=== PATIENT | male | born 1960 | race Caucasian/White ===

== ENCOUNTER 2016-10-11 15:34 | Inpatient (IN) | payer MEDICAID ==
[~2016-10-11] VITALS: Ht 172.7 cm; Wt 72.7 kg
[2016-10-11] MEDS ORDERED: CEFEPIME 2GM/50 ML (PMX) 50 ML IVPB STA (15:39)
[2016-10-11] MEDS ORDERED: SODIUM CHLORIDE 0.9% 1L BAG IV* STA (15:39)
[2016-10-11 15:41] VITALS: Ht 172.7 cm; Wt 72.7 kg
[2016-10-11] MEDS ORDERED: VANCOMYCIN 1 GM (PMX) 250 ML IVPB ONE (16:00)
[2016-10-11 16:07] LABS: ADD SCAN DIFF NO
[2016-10-11 16:09] LABS: ABNORMAL IP MESSAGE 1; BASOPHILS % 0.1 % (0.0-2.0); EOSINOPHILS % 0.1 % (0.0-7.0); HEMOGLOBIN 10.1 g/dl (14.0-18.0); LYMPHOCYTES # 0.6 10^3/ul (0.8-2.9); LYMPHOCYTES % 7.3 % (15.0-51.0); MEAN CORPUSCULAR HEMOGLOBIN 24.1 pg (29.0-33.0); MEAN CORPUSCULAR HGB CONC 30.6 g/dl (32.0-37.0); MEAN CORPUSCULAR VOLUME 78.8 fl (82.0-101.0); MEAN PLATELET VOLUME 9.6 fl (7.4-10.4); MONOCYTE # 0.6 10^3/ul (0.3-0.9); MONOCYTES % 7.8 % (0.0-11.0); NEUTROPHIL # 6.8 10^3/ul (1.6-7.5); NEUTROPHILS % 84.1 % (39.0-77.0); PLATELET COUNT 156 10^3/UL (140-415); RED BLOOD COUNT 4.19 10^6/ul (4.70-6.10); RED CELL DISTRIBUTION WIDTH 19.1 % (11.5-14.5); WHITE BLOOD COUNT 8.1 10^3/ul (4.8-10.8)
[2016-10-11 16:23] LABS: ADD UMIC YES; UR ASCORBIC ACID NEGATIVE (NEGATIVE); UR BILIRUBIN (Dip) NEGATIVE (NEGATIVE); UR BLOOD (Dip) NEGATIVE (NEGATIVE); UR CLARITY SLIGHTLY CLOUDY (CLEAR); UR COLOR AMBER (YELLOW); UR GLUCOSE (Dip) NEGATIVE (NEGATIVE); UR KETONES (Dip) TRACE mg/dL (NEGATIVE); UR LEUKOCYTE ESTERASE (Dip) NEGATIVE Leu/ul (NEGATIVE); UR MUCUS MANY /HPF (NONE SEEN); UR NITRITE (Dip) NEGATIVE (NEGATIVE); UR RBC 1 /HPF (0-5); UR SPECIFIC GRAVITY (Dip) 1.028 (1.003-1.030); UR TOTAL PROTEIN (Dip) 1+ mg/dl (NEGATIVE); UR UROBILINOGEN (Dip) NEGATIVE (NEGATIVE)
[2016-10-11 16:24] LABS: INR 1.84; PROTIME 21.4 Sec (12.2-14.2); PT RATIO 1.7
[2016-10-11 16:25] LABS: PARTIAL THROMBOPLASTIN TIME 38.3 Sec (25.0-35.0)
--- NOTE | 2016-10-11 16:25 | ERA ---
ER Documentation Chief Complaint Date/Time DATE: 10/11/16 TIME: 16:08 Chief Complaint DRUG USE, HX OF HEROIN USE HPI This is a 56-year-old male that was brought into the emergency department by EMS with changes in his mental status. According to EMS they got a call from the patient's mother and she found him lying on the bathroom floor. The patient 's last known normal time was roughly 24 hours ago when the mother indicated she had seen the patient going to the bathroom and appeared to be at his baseline mental status. The mother did indicate to EMS that the patient has a history of heroin use and she was concerned that he could have overdosed. The patient was to altered to provide any further history. His mother indicates he had a liver procedure 1 month ago but was unable to elaborate any further on the name of the procedure or where it occurred. EMS indicated there is no signs of trauma or drug paraphernalia that they were able to see. The patient was lying on a tiled surface. The patient had not experienced any emesis. No medication was given in route ROS All systems reviewed and are negative except as per history of present illness. Allergies Allergies: Coded Allergies: No Known Allergy (Unverified , 10/11/16) Physical Exam Vitals Vital Signs Date Time Temp Pulse Resp B/P Pulse Ox O2 Delivery O2 Flow Rate FiO2 10/11/16 15:41 99.2 124 33 144/65 100 Physical Exam Constitutional:Well-developed. Disheveled. HEENT:Normocephalic. Atraumatic.Pupils were equal round reactive to light. Very dry mucous membranes.No tonsillar exudates. No nasoseptal hematoma. No hemotympanum. Neck: No nuchal rigidity. No lymphadenopathy. No posterior cervical spine tenderness or step-offs. Respiratory: Tachypneic not using accessory muscles of respiration.Lungs were clear to auscultation bilaterally. No rhonchi. No rales. No wheezing. Cardiovascular: Tachycardic with regular rhythm.No murmurs. No rubs were appreciated.S1, S2 normal. Distal pulses are palpable 2+ bilaterally. GI: Abdomen was soft. Nontender. Hepatomegaly Non Distended. No pulsatile abdominal masses or bruits. No rebound. No guarding. Bowel sounds were present and normal. Muscle skeletal: Full range of motion of both the upper and lower extremities bilaterally.Normal muscle tone.No assymetrical calf tenderness or swelling. Skin: No petechia, no purpura. No lesions on the palms or the soles of the feet. No maculopapular rash. NEURO: Patient is a phasic. He opens his eyes in response to pain. He withdraws to pain. Gait was not observed as patient is too altered. Result Diagram: 10/11/16 1550 10/11/16 1550 Results 24 hrs Laboratory Tests Test 10/11/16 15:50 10/11/16 16:03 10/11/16 16:13 White Blood Count 8.110^3/ul Red Blood Count 4.1910^6/ul Hemoglobin 10.1g/dl Hematocrit 33.0% Mean Corpuscular Volume 78.8fl Mean Corpuscular Hemoglobin 24.1pg Mean Corpuscular Hemoglobin Concent 30.6g/dl Red Cell Distribution Width 19.1% Platelet Count 29609^3/UL Mean Platelet Volume 9.6fl Neutrophils % 84.1% Lymphocytes % 7.3% Monocytes % 7.8% Eosinophils % 0.1% Basophils % 0.1% Nucleated Red Blood Cells % 0.0/100WBC Neutrophils # 6.810^3/ul Lymphocytes # 0.610^3/ul Monocytes # 0.610^3/ul Eosinophils # 0.010^3/ul Basophils # 0.010^3/ul Nucleated Red Blood Cells # 0.010^3/ul Prothrombin Time 21.4Sec Prothrombin Time Ratio 1.7 INR International Normalized Ratio 1.84 Activated Partial Thromboplast Time 38.3Sec Sodium Level 148mmol/L Potassium Level 4.4mmol/L Chloride Level 109mmol/L Carbon Dioxide Level 9mmol/L Anion Gap 34 Blood Urea Nitrogen 21mg/dl Creatinine 1.47mg/dl Glucose Level 128mg/dl Lactic Acid Level 15.1mmol/L Calcium Level 9.9mg/dl Total Bilirubin 1.0mg/dl Direct Bilirubin 0.00mg/dl Indirect Bilirubin 1.0mg/dl Aspartate Amino Transf (AST/SGOT) 85IU/L Alanine Aminotransferase (ALT/SGPT) 39IU/L Alkaline Phosphatase 160IU/L Troponin I 0.042ng/ml Total Protein 9.7g/dl Albumin 4.2g/dl Globulin 5.50g/dl Albumin/Globulin Ratio 0.76 Amylase Level 103U/L Lipase 100U/L Urine Color ROBIN Urine Clarity SLIGHTLY CLOUDY Urine pH 5.0 Urine Specific [place] 1.028 Urine Ketones TRACEmg/dL Urine Nitrite NEGATIVEmg/dL Urine Bilirubin NEGATIVEmg/dL Urine Urobilinogen NEGATIVEmg/dL Urine Leukocyte Esterase NEGATIVELeu/ul Urine Microscopic RBC 1/HPF Urine Microscopic WBC 2/HPF Urine Mucus MANY/HPF Urine Hemoglobin NEGATIVEmg/dL Urine Glucose NEGATIVEmg/dL Urine Total Protein 1+mg/dl Bedside Glucose 113mg/dL Current Medications Medications (Trade) Dose Ordered Sig/Wally Route PRN Reason Start Time Stop Time Status Last Admin Dose Admin Sodium Chloride 2480 ml 2,480 ml BOLUS OVER 2 HOURS STAT IV* 10/11/16 15:39 10/11/16 15:43 DC 10/11/16 16:16 Cefepime HCl 50 ml @ 100 mls/hr ONCE STAT IVPB 10/11/16 15:39 10/11/16 16:08 DC 10/11/16 16:16 Vancomycin HCl (Vancocin) 250 ml @ 125 mls/hr ONCE ONCE IVPB 10/11/16 16:00 10/11/16 17:59 10/11/16 16:17 Procedures/MDM The patient presented to the emergency department with an acute and persistent change in their mental status. The differential diagnosis is diverse however reversible causes such as hypoglycemia, opiate overdose, thiamine deficiency were immediately considered. The patient was placed on a press operator assistant, continuous pulse oximetry and IV access was established. The patients airway was secure however hypoxic events such as anemia, shock, or severe pulmonary disease were all considered as etiologies in this patients presentation. Circulation assessed with good cap refill and did not require fluids or pressure support. Finger stick for rapid glucose determined to be normal. As stated above the patient's airway was intact as he was satting 100% on room air. The patient had blood cultures and urine cultures obtained. The patient immediately was started on a 30 cc/kg bolus of normal saline. The patient was started on antibiotics for suspected sepsis thought to be secondary to urinary tract infections the patient had pyuria and cloudy urine once the Bernstein catheter was placed for urinary output measurement. The patient was started on ceftriaxone and vancomycin. The patient's bicarb was low at 9. I ordered an arterial blood gas. The patient was given an amp of bicarb. Again the patient's airway was intact and at this moment in time did not require intubation 12 Lead EKG tracing ordered and reviewed by myself showed: Tachycardic 123 bpm and no arrhythmia. [place] interval normal. QRS duration normal. No ST segment elevation No ST segment depression. No changes consistent with acute ischemia. The patient's lactic acid was elevated at 15.1. Therefore at this time he was becoming hypotensive with a blood pressure of 86/33 felt the patient required a central line. The patient was critically ill and required central venous access. The patient was unable to consent due to his altered mental status and after was prepped and draped in a sterile fashion. Time out performed and the right femoral vein was cannulated using the Seldinger technique after anesthesia administered with 1% lidocaine locally. A triple lumen catheter used. The guidewire was easily thread into the vessel. The guidewire was retrieved, removed and disposed of. All three ports aneudy back venous blood and flushed easily. The line was secured in place with 2 simple interrupted sutures and a biostat was applied over the area in inoculation. The patient tolerated the procedure well with no complications. ED Ultrasound: Central line placed by me using concurrent ultrasound guidance. Real time image archived in the medical record confirms vascular anatomy. Patient's infectious symptoms have not stabilized and the patient is at risk of rapid decompensation. The patient will be admitted for careful hydration, antibiotic therapy, and infectious source control. Severe Sepsis Assessment: Infectious Source: Pyelonephritis End organ damage indicated by: Lactate > 2.0 mmol/L Hypotension( SBP < 90 or >40 mmHG drop or MAP < 65) Acute Resp Failure (sat < 92% w/o oxygen) Severe Sepsis Managment: Blood Cultures X 2 before broad spectrum antibiotics initiated within 3 hours of recognition. 30 ml/kg NS bolus Completed Initial Lactate: 15.1 Repeat Lactate pending Septic Shock Assessment (1 hour post 30 ml/kg fluid bolus): Hypotension (SBP < 90 or 40 mmHg drop, MAP < 65): YES Lactic acid > 4.0 YES Perfusion Reassessment for Septic Shock: Temp [XOXOXO], Pulse [XOXOXO], RR [XOXOXO], BP [XOXOXO] / [XOXOXO] Heart Exam: [Tachycardic] Lung Exam: [No Crackles] Capillary Refill: [Delayed] Peripheral Pulses: [Radially present] Skin: [Mottled, pale] Hypotensive Treatment (not required for isolated lactic acid elevation): Comfort Care: No Central LIne: Right femoral Vasopressor started: norepinephrine I considered further perfusion assessment with CVP measurement, SCVO2, bedside ultrasound volume assessment, passive leg raise, trial of further fluid bolus. And preceded with vasopressors Departure Diagnosis: Primary Impression: Drug overdose Qualified Code: T50.904A - Drug overdose, undetermined intent, initial encounter Additional Impressions: Toxic encephalopathy Severe sepsis Pyelonephritis Condition: Serious DOMINIC GARZA Oct 11, 2016 16:25
[2016-10-11 16:29] LABS: ALBUMIN 4.2 g/dl (3.3-4.9); ALBUMIN/GLOBULIN RATIO 0.76; CALCIUM 9.9 mg/dl (8.4-10.2); CREATININE 1.47 mg/dl (0.61-1.24); POTASSIUM 4.4 mmol/L (3.5-5.1); TOTAL PROTEIN 9.7 g/dl (6.1-8.1)
[2016-10-11 16:40] LABS: TROPONIN-I 0.042 ng/ml (0.00-0.12)
[2016-10-11] MEDS ORDERED: NA BICARBONATE 8.4% 50 ML SYG IV STA (17:22)
[2016-10-11] MEDS ORDERED: NORepinephrine 8MG/250 ML (PMX 250 ML IV STA (18:35)
--- NOTE | 2016-10-11 18:36 | RADRPT ---
PROCEDURE: CT head CLINICAL INDICATION: Altered mental status TECHNIQUE: Contiguous 2.5 mm axial images were obtained from the vertex to the skull base. No int ravenous contrast was administered. The calculated dose length product (DLP) = 900.28 mGy-cm. The CTDlvol = 45.01 mGy. One or more of the following dose reduction techniques were used: Automated e xposure control, adjustment of the mA and or KV according to patient size, or use of iterative recon struction technique. COMPARISON: None FINDINGS: There is no evidence of acute intracranial hemorrhage or acute territorial infarct. No mass or mass effect is seen on this noncontrast study. The ventricles and cisterns are normal in size and confi guration. The gonzales-white matter differentiation is within normal limits. The visualized paranasal sinuses are normally aerated. The bony calvarium is unremarkable. 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
[2016-10-11 18:41] VITALS: TEMP 99.1
[2016-10-11] MEDS ORDERED: NORepinephrine 8MG/250 ML (PMX 250 ML IV SCH (19:00)
[2016-10-11 19:20] LABS: BARBITURATES Negative (NEGATIVE); BENZODIAZEPINES Negative (NEGATIVE); CANNABINOIDS Negative (NEGATIVE); COCAINE Negative (NEGATIVE); OPIATES Positive (NEGATIVE)
[2016-10-11 19:30] LABS: AADO2 Arterial 23.4 mmHg (7.0-24.0); Allen Test ACCEPTAB; Arterial Base Excess -6.6 mmol/L (-3.0-3); Arterial COHb 0.3 % (0.0-3.0); Arterial Fraction of Oxyhgb 96.4 % (93.0-99.0); Arterial HCO3 15.4 mmol/L (22.0-26.0); Arterial MetHb 0.5 % (0.0-1.5); Arterial Total Hemglobin 8.6 g/dl (12.0-18.0); MODE ROOM AIR
[2016-10-11] MEDS ORDERED: VANCOMYCIN IV PER PHARMACY XX SCH (19:30)
[2016-10-11] MEDS ORDERED: DOBUTamine/D5W 1 MG/ML DRIP 250 ML IV SCH (19:30)
[2016-10-11 19:35] LABS: CALCIUM 8.8 mg/dl (8.4-10.2); CREATININE 1.07 mg/dl (0.61-1.24); POTASSIUM 4.5 mmol/L (3.5-5.1)
[2016-10-11 19:50] LABS: CREATINE KINASE 739 IU/L (23-200); SALICYLATE < 1.0 mg/dl (5.0-30.0)
--- NOTE | 2016-10-11 19:53 | HP ---
Date/Time of Note Date/Time of Note DATE: 10/11/16 TIME: 19:33 Assessment/Plan VTE Prophylaxis VTE Prophylaxis Intervention: SCD's Assessment/Plan Assessment/Plan 56 yo M yo with Pmhx heroin abuse brought in after being found down at home for unclear amount of time. Labs notable for profound anion gap metabolic acidosis 2 /2 profound lactic acidosis of unclear etiology. No leukocytosis to suggest underlying infectious process however CXR still pending and aspiration cannot be ruled out. UA without infection stigmata (no WBCs/leuks). Of note, significant improvement in chemP after 1 amp of bicarb and aggressive fluids. PLAN cont empiric sepsis abx CXR pending aggressive volume resus CMP/lactic acid q 4 hours DVT prophx NPO pending improvement in mental status (suspect toxic metabolic encephalopathy ) HPI/ROS Admit Date/Time Admit Date/Time Hx of Present Illness CC: altered mental status HPI 56 yo M with pmhx heroin abuse brought in by ambulance after being found down at home by his mother. Unclear how long patient was down or the events that led up to this incident. Pt protecting airway but otherwise not following commands/ answering questions at time of my evaluation thus unable to obtain additional ROS, PMHx/PSHx/Meds/All/Fam Hx or Soc Hx from patient PMH/Family/Social Social History Smoking Status: Unknown if ever smoked Exam/Review of Systems Vital Signs Vitals Vital Signs Date Time Temp Pulse Resp B/P Pulse Ox O2 Delivery O2 Flow Rate FiO2 10/11/16 18:41 99.1 117 30 127/96 99 Room Air Exam Exam laying on side does not follow commands tongue appears dry tachy, no mrg lungs clear abd soft no rashes or track hayes no edema Labs Result Diagram: 10/11/16 1550 10/11/16 1550 Medications Medications Current Medications Lorazepam (Ativan) 1 mg Q2H PRN IV ANXIETY; Start 10/11/16 at 19:00 Docusate Sodium (Colace) 100 mg Q12H PRN PO CONSTIPATION; Start 10/11/16 at 19: 00 Enoxaparin Sodium 40 mg 40 mg DAILY SC ; Start 10/12/16 at 09:00 Cefepime HCl 50 ml @ 100 mls/hr Q8 IVPB ; Start 10/11/16 at 22:00 Norepinephrine/ Dextrose (Levophed/D5W) 500 ml @ 1.87 mls/hr TITRATE IV ; Start 10/11/16 at 19:30 TOMASA LEMOS MD Oct 11, 2016 19:50
[2016-10-11] MEDS: SOD CHLORIDE 0.9% 1,000 ML IV SCH ×2 (20:00→23:57)
[2016-10-11 20:25] LABS: HAAIG REFLEX REFLEX FILED
[2016-10-11 20:54] LABS: ALBUMIN 2.9 g/dl (3.3-4.9); BILIRUBIN,INDIRECT 0.7 mg/dl (0-1.1); BILIRUBIN,TOTAL 0.7 mg/dl (0.2-1.3); TOTAL PROTEIN 7.1 g/dl (6.1-8.1)
[2016-10-11 21:20] VITALS: PULSE 115
[2016-10-11 21:30] VITALS: BP 147/62; PULSE 111; RESP 36
[2016-10-11 21:38] LABS: HEPATITIS B CORE ANTIBODY REACTIVE (NEGATIVE)
[2016-10-11 22:00] VITALS: BP 150/61; PULSE 113; RESP 26
[2016-10-11] MEDS: CEFEPIME 2GM/50 ML (PMX) 50 ML IVPB SCH (22:00)
[2016-10-11 23:00] VITALS: BP 142/59; PULSE 120; RESP 25
[2016-10-11 23:30] VITALS: BP 126/78; PULSE 122; RESP 18
[2016-10-11 23:37] LABS: ALBUMIN 2.9 g/dl (3.3-4.9); ALBUMIN/GLOBULIN RATIO 0.69; BILIRUBIN,INDIRECT 0.8 mg/dl (0-1.1); BILIRUBIN,TOTAL 0.8 mg/dl (0.2-1.3); CALCIUM 8.7 mg/dl (8.4-10.2); CREATININE 0.93 mg/dl (0.61-1.24); POTASSIUM 4.1 mmol/L (3.5-5.1); TOTAL PROTEIN 7.1 g/dl (6.1-8.1)
[2016-10-11] MEDS: LORAZEPAM 2 MG INJ IV PRN (23:56)
[2016-10-12] VITALS (28 sets, daily range): BP systolic 126–167; BP diastolic 54–142; PULSE 79–127; RESP 18–38
[2016-10-12] MEDS ORDERED: VANCOMYCIN 1 GM in NS 250 ML IVPB SCH
[2016-10-12] MEDS: SOD CHLORIDE 0.9% 1,000 ML IV SCH ×2 (04:46→07:43)
[2016-10-12] MEDS: CEFEPIME 2GM/50 ML (PMX) 50 ML IVPB SCH (05:36)
[2016-10-12] MEDS: LORAZEPAM 2 MG INJ IV PRN (05:36)
--- NOTE | 2016-10-12 06:33 | RADRPT ---
PROCEDURE: Chest x-ray CLINICAL INDICATION: Shortness of breath TECHNIQUE: Chest single view COMPARISON: None FINDINGS: The heart is normal in size. The pulmonary vessels are normal in caliber. The lungs are clear. Th e costophrenic angles are sharp. The visualized bony thorax is unremarkable. IMPRESSION: No acute cardiopulmonary disease. RPTAT: HH .Jarrod Gonzalez MD, Date Time Electronically viewed and signed by .Jarrod Gonzalez MD, MD on 10/11/2016 16:31 .W/
[2016-10-12 06:43] LABS: ALBUMIN 2.4 g/dl (3.3-4.9); ALBUMIN/GLOBULIN RATIO 0.58; BILIRUBIN,INDIRECT 0.8 mg/dl (0-1.1); BILIRUBIN,TOTAL 0.8 mg/dl (0.2-1.3); CALCIUM 8.6 mg/dl (8.4-10.2); CREATININE 0.69 mg/dl (0.61-1.24); POTASSIUM 3.9 mmol/L (3.5-5.1); TOTAL PROTEIN 6.5 g/dl (6.1-8.1)
[2016-10-12] MEDS ORDERED: ENOXAPARIN 40 MG/0.4 ML SYG SC SCH (09:00)
--- NOTE | 2016-10-12 10:32 | PN ---
Date/Time of Note Date/Time of Note DATE: 10/12/16 TIME: 10:28 Assessment/Plan VTE Prophylaxis VTE Prophylaxis Intervention: SCD's Lines/Catheters IV Catheter Type (from Nrsg): Central Line Central line still needed: Yes Urinary Cath still in place: Yes Reason Cath still needed: urinary retention Assessment/Plan Chief Complaint/Hosp Course Assessment/Plan: 56 yo M yo with Pmhx heroin abuse brought in after being found down at home for unclear amount of time, with + anion gap metabolic acidosis 2/ 2 profound lactic acidosis of unclear etiology, and possible rhabdo. PLAN cont empiric sepsis abx, aggressive IVF hydration (monitor CK levels ), monitor withdrawal smpts, add anti-emetic as well. CMP/lactic acid q 4 hours (trending down presently) DVT prophx - SCD's NPO pending improvement in mental status (suspect toxic metabolic encephalopathy ) for high Na+, change IVF's to D5W. Critical care time spent today = 40 min. Problems: Subjective 24 Hr Interval Summary Free Text/Dictation Pt still lethargic, on IVF's. Exam/Review of Systems Vital Signs Vitals Vital Signs Date Time Temp Pulse Resp B/P Pulse Ox O2 Delivery O2 Flow Rate FiO2 10/12/16 06:30 127 25 147/54 96 10/12/16 05:30 98.6 10/11/16 22:00 Nasal Cannula Intake and Output 10/11/16 10/11/16 10/12/16 15:00 23:00 07:00 Intake Total 770 ml 2050 ml Output Total 230 ml 800 ml Balance 540 ml 1250 ml Exam laying on side does not follow commands tongue appears dry less tachy, no mrg lungs clear abd soft no rashes or track hayes no edema Results Result Diagram: 10/11/16 1550 10/12/16 0445 Results 24 hrs Laboratory Tests Test 10/11/16 15:50 10/11/16 16:03 10/11/16 16:13 10/11/16 18:40 White Blood Count 8.1 Red Blood Count 4.19 L Hemoglobin 10.1 L Hematocrit 33.0 L Mean Corpuscular Volume 78.8 L Mean Corpuscular Hemoglobin 24.1 L Mean Corpuscular Hemoglobin Concent 30.6 L Red Cell Distribution Width 19.1 H Platelet Count 156 Mean Platelet Volume 9.6 Neutrophils % 84.1 H Lymphocytes % 7.3 L Monocytes % 7.8 Eosinophils % 0.1 Basophils % 0.1 Nucleated Red Blood Cells % 0.0 Neutrophils # 6.8 Lymphocytes # 0.6 L Monocytes # 0.6 Eosinophils # 0.0 Basophils # 0.0 Nucleated Red Blood Cells # 0.0 Prothrombin Time 21.4 H Prothrombin Time Ratio 1.7 INR International Normalized Ratio 1.84 Activated Partial Thromboplast Time 38.3 H Sodium Level 148 H Potassium Level 4.4 Chloride Level 109 Carbon Dioxide Level 9 *L Anion Gap 34 H Blood Urea Nitrogen 21 H Creatinine 1.47 H Glucose Level 128 Lactic Acid Level 15.1 *H Calcium Level 9.9 Total Bilirubin 1.0 Direct Bilirubin 0.00 Indirect Bilirubin 1.0 Aspartate Amino Transf (AST/SGOT) 85 H Alanine Aminotransferase (ALT/SGPT) 39 Alkaline Phosphatase 160 H Troponin I 0.042 Total Protein 9.7 H Albumin 4.2 Globulin 5.50 H Albumin/Globulin Ratio 0.76 Amylase Level 103 Lipase 100 Ethyl Alcohol Level < 10.0 Hepatitis B Surface Antibody POSITIVE H Urine Color ROBIN Urine Clarity SLIGHTLY CLOUDY A Urine pH 5.0 Urine Specific [place] 1.028 Urine Ketones TRACE A Urine Nitrite NEGATIVE Urine Bilirubin NEGATIVE Urine Urobilinogen NEGATIVE Urine Leukocyte Esterase NEGATIVE Urine Microscopic RBC 1 Urine Microscopic WBC 2 Urine Mucus MANY A Urine Hemoglobin NEGATIVE Urine Glucose NEGATIVE Urine Total Protein 1+ H Urine Opiates Screen Positive Urine Barbiturates Negative Urine Amphetamines Screen Negative Urine Benzodiazepines Screen Negative Urine Cocaine Screen Negative Urine Cannabinoids Negative Bedside Glucose 113 Blood Gas Specimen Source Blood arterial Arterial Blood Date Drawn 10/11/2016 7:20:56 PM Arterial Blood pH (Temp corrected) 7.496 H Arterial Blood pCO2 (Temp correct) 20.4 L Arterial Blood pO2 (Temp corrected) 101.9 H Arterial Blood HCO3 15.4 L Arterial Blood Base Excess -6.6 L Arterial Blood Oxygen Saturation 97.2 Jonathan Test ACCEPTAB Arterial Blood Gas Puncture Site Right Radial Arterial Blood Carboxyhemoglobin 0.3 Arterial Blood Methemoglobin 0.5 Blood Gas A-a O2 Differential 23.4 Oxyhemoglobin Percent 96.4 Total Hemoglobin 8.6 L Blood Gas Temperature 37.0 Blood Gas Modality ROOM AIR FiO2 21.0 Blood Gas Notified Whom AR Blood Gas Notified Time 10/11/2016 7:30:33 PM Test 10/11/16 19:00 10/11/16 19:05 10/11/16 20:20 10/11/16 23:00 Lactic Acid Level 8.5 *H 5.4 *H Creatine Kinase 739 H Salicylates Level < 1.0 L Sodium Level 148 H 148 H Potassium Level 4.5 4.1 Chloride Level 111 H 112 H Carbon Dioxide Level 17 L 19 L Anion Gap 25 #H 21 H Blood Urea Nitrogen 22 H 20 Creatinine 1.07 0.93 Glucose Level 109 99 Calcium Level 8.8 8.7 Total Bilirubin 0.7 0.8 Direct Bilirubin 0.00 0.00 Indirect Bilirubin 0.7 0.8 Acetone Level (Chemistry) NEGATIVE Aspartate Amino Transf (AST/SGOT) 68 H 74 H Alanine Aminotransferase (ALT/SGPT) 37 41 Alkaline Phosphatase 99 100 Total Protein 7.1 # 7.1 Albumin 2.9 #L 2.9 L Hepatitis B Surface Antigen NEGATIVE Hepatitis B Core Total Antibody REACTIVE H Hepatitis C Antibody REACTIVE H HIV (1&2) Antibody NEGATIVE Globulin 4.20 H Albumin/Globulin Ratio 0.69 Test 10/12/16 04:45 Sodium Level 147 H Potassium Level 3.9 Chloride Level 111 H Carbon Dioxide Level 22 Anion Gap 18 H Blood Urea Nitrogen 20 Creatinine 0.69 Glucose Level 93 Lactic Acid Level 2.2 *H Calcium Level 8.6 Total Bilirubin 0.8 Direct Bilirubin 0.00 Indirect Bilirubin 0.8 Aspartate Amino Transf (AST/SGOT) 86 H Alanine Aminotransferase (ALT/SGPT) 42 Alkaline Phosphatase 91 Total Protein 6.5 Albumin 2.4 L Globulin 4.10 H Albumin/Globulin Ratio 0.58 Medications Medications Current Medications Lorazepam (Ativan) 1 mg Q2H PRN IV ANXIETY Last administered on 10/12/16t 05:36 ; Admin Dose 1 MG; Start 10/11/16 at 19:00 Docusate Sodium 100 mg 100 mg Q12H PRN PO CONSTIPATION; Start 10/11/16 at 19:00 Norepinephrine 16 mg/Dextrose 500 ml @ 1.87 mls/hr TITRATE IV ; Start 10/11/16 at 19:30 Dextrose (D5W) 1,000 ml @ 125 mls/hr Q8H IV ; Start 10/12/16 at 10:30; Status UNV Ondansetron HCl 4 mg 4 mg Q6H PRN IV NAUSEA AND/OR VOMITING; Start 10/12/16 at 10:30; Status UNV Levofloxacin/ Dextrose (Levaquin 750 Mg/ D5W 150 ml (Pmx)) 150 ml @ 100 mls/hr Q24H IVPB ; Start 10/12/16 at 10:30; Status UNV CHRISTY MCDONALD Oct 12, 2016 10:32
[2016-10-12] MEDS: DEXTROSE 5% 1,000 ML IV SCH ×3 (10:36→23:50)
[2016-10-12 10:40] LABS: ALBUMIN 2.8 g/dl (3.3-4.9); ALBUMIN/GLOBULIN RATIO 0.66; BILIRUBIN,INDIRECT 0.9 mg/dl (0-1.1); BILIRUBIN,TOTAL 0.9 mg/dl (0.2-1.3); CALCIUM 8.4 mg/dl (8.4-10.2); CREATININE 0.72 mg/dl (0.61-1.24); POTASSIUM 3.9 mmol/L (3.5-5.1)
[2016-10-12] MEDS: LEVOFLOXACIN 750MG/D5W (PMX) 150 ML IVPB SCH (12:03)
[2016-10-12] MEDS: ONDANSETRON 4 MG INJ IV PRN (12:03)
[2016-10-12 13:57] LABS: ALBUMIN 2.3 g/dl (3.3-4.9); ALBUMIN/GLOBULIN RATIO 0.52; BILIRUBIN,INDIRECT 0.8 mg/dl (0-1.1); BILIRUBIN,TOTAL 0.8 mg/dl (0.2-1.3); CALCIUM 8.3 mg/dl (8.4-10.2); CREATININE 0.72 mg/dl (0.61-1.24); POTASSIUM 3.8 mmol/L (3.5-5.1); TOTAL PROTEIN 6.7 g/dl (6.1-8.1)
[2016-10-12 16:15] LABS: ALBUMIN 2.4 g/dl (3.3-4.9); ALBUMIN/GLOBULIN RATIO 0.52; BILIRUBIN,INDIRECT 0.8 mg/dl (0-1.1); BILIRUBIN,TOTAL 0.8 mg/dl (0.2-1.3); CALCIUM 8.4 mg/dl (8.4-10.2); CREATININE 0.74 mg/dl (0.61-1.24); POTASSIUM 3.8 mmol/L (3.5-5.1)
[2016-10-12 20:11] LABS: ALBUMIN 2.4 g/dl (3.3-4.9); ALBUMIN/GLOBULIN RATIO 0.53; BILIRUBIN,INDIRECT 0.8 mg/dl (0-1.1); BILIRUBIN,TOTAL 0.8 mg/dl (0.2-1.3); CALCIUM 8.8 mg/dl (8.4-10.2); CREATININE 0.71 mg/dl (0.61-1.24); POTASSIUM 3.8 mmol/L (3.5-5.1); TOTAL PROTEIN 6.9 g/dl (6.1-8.1)
[2016-10-13] VITALS (15 sets, daily range): BP systolic 119–144; BP diastolic 53–73; PULSE 64–100; RESP 18–20
[2016-10-13] MEDS: DEXTROSE 5% 1,000 ML IV SCH ×2 (05:57→09:47)
[2016-10-13 08:05] LABS: ADD SCAN DIFF NO
[2016-10-13 08:12] LABS: ABNORMAL IP MESSAGE 1; BASOPHILS % 0.3 % (0.0-2.0); EOSINOPHILS % 0.9 % (0.0-7.0); HEMATOCRIT 22.6 % (42.0-52.0); HEMOGLOBIN 7.3 g/dl (14.0-18.0); LYMPHOCYTES # 0.9 10^3/ul (0.8-2.9); LYMPHOCYTES % 25.6 % (15.0-51.0); MEAN CORPUSCULAR HEMOGLOBIN 24.7 pg (29.0-33.0); MEAN CORPUSCULAR HGB CONC 32.3 g/dl (32.0-37.0); MEAN CORPUSCULAR VOLUME 76.4 fl (82.0-101.0); MEAN PLATELET VOLUME 9.8 fl (7.4-10.4); MONOCYTE # 0.4 10^3/ul (0.3-0.9); MONOCYTES % 10.9 % (0.0-11.0); NEUTROPHIL # 2.1 10^3/ul (1.6-7.5); RED BLOOD COUNT 2.96 10^6/ul (4.70-6.10); RED CELL DISTRIBUTION WIDTH 19.2 % (11.5-14.5); WHITE BLOOD COUNT 3.4 10^3/ul (4.8-10.8)
--- NOTE | 2016-10-13 10:11 | CONS ---
Date/Time of Note Date/Time of Note DATE: 10/13/16 TIME: 10:03 Assessment/Plan Assessment/Plan Additional Assessment/Plan Plan will begin opioid treatment and maintenance treatment with both methadone and short-acting opioids . I've explained to him that we will not titrate massive doses of opioids during his hospitalization. Consultation Date/Type/Reason Admit Date/Time Oct 11, 2016 at 18:38 Initial Consult Date Type of Consultation: Pain management 24 HR Interval Summary Free Text/Dictation I'll begin by saying this gentleman is less than forthcoming with giving me a clear history of present illness especially in relation to his current opioid and alcohol use. What I could obtain from patient is that he did a mechanical fall and has a dislocation of his hip, he doesn't want to talk about he wants to be treated with pain medications. Other pain management issues degree of pain radiating pain current control with pain regimen while hospitalized, past medical history of drug use, patient does not want to talk about it at this time.However I agree he needs to have pain control attended given Exam/Review of Systems Vital Signs Vitals Vital Signs Date Time Temp Pulse Resp B/P Pulse Ox O2 Delivery O2 Flow Rate FiO2 10/13/16 08:28 93 10/13/16 07:45 98.9 20 131/65 97 10/12/16 18:00 Room Air Intake and Output 10/12/16 10/12/16 10/13/16 15:00 23:00 07:00 Intake Total 0 ml 0 ml 0 ml Output Total 550 ml 550 ml 4600 ml Balance -550 ml -550 ml -4600 ml Exam Constitutional: No alert, No distress, No frail, No non-verbal, No obese, No oriented, No other, No well developed Psych: anxiety, other (Aggressive and irritated) Eyes: No EOMI, No PERRL, No fundi, disc, No icteric, No nl conjunctiva, No nl lids, No nl sclera, No other Neck: No bruits, No jvd, No masses, No non-tender, No nuchal rigidity, No other , No supple, No thyromegaly Respiratory: No clear to auscultation, No congested cough, No crackles/rales, No diminished breath sounds, No intercostal retraction, No labored breathing, No normal air movement, No other, No respirations, No tactile fremitus, No wheezing Cardiovascular: No S3, No S4, No bruits, No diastolic murmur, No edema, No gallop, No irregular rhythm, No jugular venous distention (JVD), No murmurs/ extra sounds, No nl pulses, No other, No regular rate and rhythm, No rub, No systolic murmur Gastrointestinal: No ascites, No bowel sounds, No distended, No firm, No hepatomegaly, No mass, No nl liver, spleen, No non-tender, No other, No rebound or guarding, No soft, No splenomegaly, No surgical scars, No tender Results Result Diagram: 10/13/16 0700 10/12/16 1855 Results 24 hrs Laboratory Tests Test 10/12/16 13:30 10/12/16 15:35 10/12/16 18:55 10/12/16 23:55 Sodium Level 145 H 144 146 H Potassium Level 3.8 3.8 3.8 Chloride Level 113 H 112 H 112 H Carbon Dioxide Level 21 20 L 22 Anion Gap 15 16 16 Blood Urea Nitrogen 17 16 15 Creatinine 0.72 0.74 0.71 Glucose Level 106 90 100 Lactic Acid Level 1.5 1.5 1.4 1.1 Calcium Level 8.3 L 8.4 8.8 Total Bilirubin 0.8 0.8 0.8 Direct Bilirubin 0.00 0.00 0.00 Indirect Bilirubin 0.8 0.8 0.8 Aspartate Amino Transf (AST/SGOT) 94 H 97 H 98 H Alanine Aminotransferase (ALT/SGPT) 48 49 49 Alkaline Phosphatase 89 93 96 Creatine Kinase 1100 H Total Protein 6.7 7.0 6.9 Albumin 2.3 L 2.4 L 2.4 L Globulin 4.40 H 4.60 H 4.50 H Albumin/Globulin Ratio 0.52 0.52 0.53 Test 10/13/16 07:00 White Blood Count 3.4 #L Red Blood Count 2.96 #L Hemoglobin 7.3 #L Hematocrit 22.6 #L Mean Corpuscular Volume 76.4 L Mean Corpuscular Hemoglobin 24.7 L Mean Corpuscular Hemoglobin Concent 32.3 Red Cell Distribution Width 19.2 H Platelet Count Pending Mean Platelet Volume 9.8 Neutrophils % 62.0 Lymphocytes % 25.6 Monocytes % 10.9 Eosinophils % 0.9 Basophils % 0.3 Nucleated Red Blood Cells % 0.0 Neutrophils # 2.1 Lymphocytes # 0.9 Monocytes # 0.4 Eosinophils # 0.0 Basophils # 0.0 Nucleated Red Blood Cells # 0.0 Creatine Kinase 473 #H Medications Medications Current Medications Lorazepam (Ativan) 1 mg Q2H PRN IV ANXIETY Last administered on 10/12/16 05:36 ; Admin Dose 1 MG; Start 10/11/16 at 19:00 Docusate Sodium 100 mg 100 mg Q12H PRN PO CONSTIPATION; Start 10/11/16 at 19:00 Norepinephrine 16 mg/Dextrose 500 ml @ 1.87 mls/hr TITRATE IV ; Start 10/11/16 at 19:30 Dextrose (D5W) 1,000 ml @ 150 mls/hr Q6H40M IV Last administered on 10/13/16 09:47; Admin Dose 150 MLS/HR; Start 10/12/16 at 10:30 Ondansetron HCl 4 mg 4 mg Q6H PRN IV NAUSEA AND/OR VOMITING Last administered on 10/12/16 12:03; Admin Dose 4 MG; Start 10/12/16 at 10:30 Levofloxacin/ Dextrose (Levaquin 750 Mg/ D5W 150 ml (Pmx)) 150 ml @ 100 mls/hr Q24H IVPB Last administered on 10/12/16 12:03; Admin Dose 100 MLS/HR; Start at 11:00 CATE CARTER Oct 13, 2016 10:11
[2016-10-13 12:04] LABS: PLATELET COUNT 60 10^3/UL (140-415)
[2016-10-13] MEDS: LEVOFLOXACIN 750MG/D5W (PMX) 150 ML IVPB SCH (13:18)
[2016-10-13] MEDS: METHADONE 10 MG TAB PO SCH ×3 (13:19→22:17)
--- NOTE | 2016-10-13 13:56 | PN ---
Date/Time of Note Date/Time of Note DATE: 10/13/16 TIME: 13:52 Assessment/Plan VTE Prophylaxis VTE Prophylaxis Intervention: SCD's Lines/Catheters IV Catheter Type (from Nrsg): Central Line Central line still needed: Yes Urinary Cath still in place: Yes Reason Cath still needed: urinary retention Assessment/Plan Chief Complaint/Hosp Course Assessment/Plan: 56 yo M yo with Pmhx heroin abuse brought in after being found down at home for unclear amount of time, with + anion gap metabolic acidosis 2/ 2 profound lactic acidosis of unclear etiology, and possible rhabdo. PLAN cont aggressive IVF hydration (monitor CK levels, they are trending down), monitor withdrawal smpts, anti-emetic as well, follow-up pain team care recommendations for pain mngt For thrombocytopenia, possibly related to patient's liver disease, will DC Levaquin, monitor for now. No signs of any bleeding presently. For low hemoglobin, repeat H/H, will also get physical therapy eval DVT prophx - SCD's NPO pending improvement in mental status (suspect toxic metabolic encephalopathy ) for high Na+, continue D5W IV fluids. Problems: Subjective 24 Hr Interval Summary Free Text/Dictation Patient out of intensive care unit, more alert and awake today. Still in restraints. Seen by pain management team. Exam/Review of Systems Vital Signs Vitals Vital Signs Date Time Temp Pulse Resp B/P Pulse Ox O2 Delivery O2 Flow Rate FiO2 10/13/16 12:29 87 10/13/16 10:10 98.6 18 125/60 96 10/12/16 18:00 Room Air Intake and Output 10/12/16 10/12/16 10/13/16 15:00 23:00 07:00 Intake Total 0 ml 0 ml 0 ml Output Total 550 ml 550 ml 4600 ml Balance -550 ml -550 ml -4600 ml Exam Alert, answering questions, in restraints tongue appears dry less tachy, no mrg lungs clear abd soft no rashes or track hayes no edema Results Result Diagram: 10/13/16 0700 10/12/16 8785 Results 24 hrs Laboratory Tests Test 10/12/16 15:35 10/12/16 18:55 10/12/16 23:55 10/13/16 07:00 Sodium Level 144 146 H Potassium Level 3.8 3.8 Chloride Level 112 H 112 H Carbon Dioxide Level 20 L 22 Anion Gap 16 16 Blood Urea Nitrogen 16 15 Creatinine 0.74 0.71 Glucose Level 90 100 Lactic Acid Level 1.5 1.4 1.1 Calcium Level 8.4 8.8 Total Bilirubin 0.8 0.8 Direct Bilirubin 0.00 0.00 Indirect Bilirubin 0.8 0.8 Aspartate Amino Transf (AST/SGOT) 97 H 98 H Alanine Aminotransferase (ALT/SGPT) 49 49 Alkaline Phosphatase 93 96 Total Protein 7.0 6.9 Albumin 2.4 L 2.4 L Globulin 4.60 H 4.50 H Albumin/Globulin Ratio 0.52 0.53 White Blood Count 3.4 #L Red Blood Count 2.96 #L Hemoglobin 7.3 #L Hematocrit 22.6 #L Mean Corpuscular Volume 76.4 L Mean Corpuscular Hemoglobin 24.7 L Mean Corpuscular Hemoglobin Concent 32.3 Red Cell Distribution Width 19.2 H Platelet Count 60 #L Mean Platelet Volume 9.8 Neutrophils % 62.0 Lymphocytes % 25.6 Monocytes % 10.9 Eosinophils % 0.9 Basophils % 0.3 Nucleated Red Blood Cells % 0.0 Neutrophils # 2.1 Lymphocytes # 0.9 Monocytes # 0.4 Eosinophils # 0.0 Basophils # 0.0 Nucleated Red Blood Cells # 0.0 Creatine Kinase 473 #H Medications Medications Current Medications Lorazepam (Ativan) 1 mg Q2H PRN IV ANXIETY Last administered on 10/12/16 05:36 ; Admin Dose 1 MG; Start 10/11/16 at 19:00 Docusate Sodium 100 mg 100 mg Q12H PRN PO CONSTIPATION; Start 10/11/16 at 19:00 Norepinephrine 16 mg/Dextrose 500 ml @ 1.87 mls/hr TITRATE IV ; Start 10/11/16 at 19:30 Dextrose (D5W) 1,000 ml @ 150 mls/hr Q6H40M IV Last administered on 10/13/16 09:47; Admin Dose 150 MLS/HR; Start 10/12/16 at 10:30 Ondansetron HCl 4 mg 4 mg Q6H PRN IV NAUSEA AND/OR VOMITING Last administered on 10/12/16 12:03; Admin Dose 4 MG; Start 10/12/16 at 10:30 Levofloxacin/ Dextrose (Levaquin 750 Mg/ D5W 150 ml (Pmx)) 150 ml @ 100 mls/hr Q24H IVPB Last administered on 10/13/16t 13:18; Admin Dose 100 MLS/HR; Start at 11:00 Methadone HCl (Methadone) 30 mg Q8 PO ; Start 10/13/16 at 14:00 CHRISTY MCDONALD Oct 13, 2016 13:55
[2016-10-13 14:28] LABS: HEMATOCRIT 22.3 % (42.0-52.0); HEMOGLOBIN 7.3 g/dl (14.0-18.0)
[2016-10-14] VITALS (10 sets, daily range): BP systolic 110–125; BP diastolic 60–71; PULSE 87–106; RESP 19–20
[2016-10-14] MEDS: DEXTROSE 5% 1,000 ML IV SCH ×5 (02:30→22:30)
[2016-10-14] MEDS: METHADONE 10 MG TAB PO SCH ×3 (06:00→21:00)
[2016-10-14] MEDS: LORAZEPAM 2 MG INJ IV PRN (08:58)
[2016-10-14 11:08] LABS: ADD SCAN DIFF NO
[2016-10-14 11:15] LABS: ABNORMAL IP MESSAGE 1; BASOPHILS % 0.3 % (0.0-2.0); EOSINOPHILS # 0.1 10^3/ul (0.0-0.5); EOSINOPHILS % 3.6 % (0.0-7.0); HEMATOCRIT 28.3 % (42.0-52.0); HEMOGLOBIN 9.1 g/dl (14.0-18.0); LYMPHOCYTES # 0.8 10^3/ul (0.8-2.9); LYMPHOCYTES % 22.2 % (15.0-51.0); MEAN CORPUSCULAR HEMOGLOBIN 25.3 pg (29.0-33.0); MEAN CORPUSCULAR HGB CONC 32.2 g/dl (32.0-37.0); MEAN CORPUSCULAR VOLUME 78.6 fl (82.0-101.0); MEAN PLATELET VOLUME 8.7 fl (7.4-10.4); MONOCYTE # 0.3 10^3/ul (0.3-0.9); MONOCYTES % 8.6 % (0.0-11.0); NEUTROPHIL # 2.2 10^3/ul (1.6-7.5); NEUTROPHILS % 65.3 % (39.0-77.0); PLATELET COUNT 53 10^3/UL (140-415); WHITE BLOOD COUNT 3.4 10^3/ul (4.8-10.8)
--- NOTE | 2016-10-14 12:12 | PN ---
Date/Time of Note Date/Time of Note DATE: 10/14/16 TIME: 12:07 Assessment/Plan VTE Prophylaxis VTE Prophylaxis Intervention: SCD's Lines/Catheters IV Catheter Type (from Nrsg): Central Line Central line still needed: Yes Urinary Cath still in place: Yes Reason Cath still needed: urinary retention Assessment/Plan Chief Complaint/Hosp Course Assessment/Plan: 56 yo M yo with Pmhx heroin abuse brought in after being found down at home for unclear amount of time, with + anion gap metabolic acidosis 2/ 2 profound lactic acidosis of unclear etiology, and possible rhabdo. PLAN cont aggressive IVF hydration (monitor CK levels, they are trending down, are normal today), monitor withdrawal smpts, anti-emetic as well, follow-up pain team care recommendations for pain mngt, continue physical therapy as well For thrombocytopenia, possibly related to patient's liver disease,monitor for now. No signs of any bleeding presently. For low hemoglobin-received blood transfusion yesterday, hemoglobin more stable today. We will also check occult stool test. For hepatitis C positive, get infectious disease consult. Patient is also hepatitis B positive. DVT prophx - SCD's Continue current diet. for high Na+, continue D5W IV fluids. Problems: Subjective 24 Hr Interval Summary Free Text/Dictation Patient off restraints now, more alert, worked with physical therapy today. Received blood transfusion yesterday. Exam/Review of Systems Vital Signs Vitals Vital Signs Date Time Temp Pulse Resp B/P Pulse Ox O2 Delivery O2 Flow Rate FiO2 10/14/16 09:21 87 10/14/16 07:52 98.7 20 121/64 94 10/13/16 14:00 Room Air Intake and Output 10/13/16 10/13/16 10/14/16 15:00 23:00 07:00 Intake Total 240 ml 700 ml Output Total 2000 ml Balance -1760 ml 700 ml Exam Lying in bed, sleeping, no acute distress tongue appears dry less tachy, no mrg lungs clear abd soft no rashes or track hayes no edema Results Result Diagram: 10/14/16 1100 10/12/16 6541 Results 24 hrs Laboratory Tests Test 10/13/16 13:55 10/14/16 05:27 10/14/16 10:15 10/14/16 11:00 Hemoglobin 7.3 L 9.1 #L Hematocrit 22.3 L 28.3 #L Lab Scanned Report BLOOD TRANSFUSION Creatine Kinase 141 # White Blood Count 3.4 L Red Blood Count 3.60 #L Mean Corpuscular Volume 78.6 L Mean Corpuscular Hemoglobin 25.3 L Mean Corpuscular Hemoglobin Concent 32.2 Red Cell Distribution Width 18.0 H Platelet Count 53 L Mean Platelet Volume 8.7 Neutrophils % 65.3 Lymphocytes % 22.2 Monocytes % 8.6 Eosinophils % 3.6 Basophils % 0.3 Nucleated Red Blood Cells % 0.0 Neutrophils # 2.2 Lymphocytes # 0.8 Monocytes # 0.3 Eosinophils # 0.1 Basophils # 0.0 Nucleated Red Blood Cells # 0.0 Test 10/14/16 12:03 Lab Scanned Report REFERENCE LAB Medications Medications Current Medications Lorazepam (Ativan) 1 mg Q2H PRN IV ANXIETY Last administered on 10/14/16 08:58 ; Admin Dose 1 MG; Start 10/11/16 at 19:00 Docusate Sodium 100 mg 100 mg Q12H PRN PO CONSTIPATION; Start 10/11/16 at 19:00 Norepinephrine 16 mg/Dextrose 500 ml @ 1.87 mls/hr TITRATE IV ; Start 10/11/16 at 19:30 Dextrose (D5W) 1,000 ml @ 150 mls/hr Q6H40M IV Last administered on 10/14/16 08:57; Admin Dose 150 MLS/HR; Start 10/12/16 at 10:30 Ondansetron HCl (Zofran Inj) 4 mg Q6H PRN IV NAUSEA AND/OR VOMITING Last administered on 10/12/16 12:03; Admin Dose 4 MG; Start 10/12/16 at 10:30 Methadone HCl (Methadone) 30 mg Q8 PO Last administered on 10/13/16 22:17; Admin Dose 30 MG; Start 10/13/16 at 14:00 CHRISTY MCDONALD Oct 14, 2016 12:11
--- NOTE | 2016-10-14 16:23 | CONS ---
Date/Time of Note Date/Time of Note DATE: 10/14/16 TIME: 16:21 Consultation Date/Type/Reason Admit Date/Time Oct 11, 2016 at 18:38 Type of Consultation: ID Reason for Consultation This is Dr. Osorio Maddox dictating infectious disease consult on Bethel Newell, date of admission 10/11/2016, date of dictation 10/14/2016, reason for consultation is antibiotic management. Dandy Newell is a 56-year-old male with past medical history of heroin abuse who is found down at home by his mother. On admission the patient was not following commands. His white count was 8.1 H&H 10.1 and 33 platelet count 156, 000 BUN/creatinine was 21/1.47 with a CO2 of 9 and a profound anion gap secondary to lactic acidosis. On admission his chest x-ray showed no acute cardiopulmonary disease, and CT scan of the brain was unremarkable, blood cultures were negative, urine cultures negative, MRSA screen is negative. 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 The patient was thought to have possible rhabdomyolysis. He received aggressive IV hydration. Serologically the patient had hepatitis C and also hepatitis B antibody positive. Therefore he has immunity to hepatitis B but should be treated for hepatitis C if his liver biopsy does not show cirrhosis. Past medical history as outlined Surgical history noncontributory Family history noncontributory Social history: Patient abuses heroin. Review of systems noncontributory On physical examination vital signs are stable he is afebrile. SHEENT within normal limits Neck is supple lymph nodes nonpalpable Chest decreased breath sounds at the bases Heart without murmur gallop Abdomen is soft nontender without organosplenomegaly masses Extremities without cyanosis clubbing or edema Rectal genital exams deferred Neurological evaluation: No focal neurological abnormalities. Impression/plan patient is a 56-year-old male with heroin addiction who presented with lactic acidosis and probable rhabdomyolysis. He should be seen by GI for treatment of hepatitis C with Pelon, but he probably requires a liver biopsy first. I will dictate my findings to the hospitalists. 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 Psychological: anxiety, other (Aggressive and irritated) Social History Smoking Status: Current every day smoker Exam/Review of Systems Vital Signs Vitals Vital Signs Date Time Temp Pulse Resp B/P Pulse Ox O2 Delivery O2 Flow Rate FiO2 10/14/16 15:55 98.3 97 20 125/61 96 10/13/16 14:00 Room Air Intake and Output 10/13/16 10/13/16 10/14/16 15:00 23:00 07:00 Intake Total 240 ml 700 ml Output Total 2000 ml Balance -1760 ml 700 ml Results Result Diagram: 10/14/16 1100 10/12/16 1855 Results 24 hrs Laboratory Tests Test 10/14/16 05:27 10/14/16 10:15 10/14/16 11:00 10/14/16 12:03 Lab Scanned Report BLOOD TRANSFUSION REFERENCE LAB Creatine Kinase 141 # White Blood Count 3.4 L Red Blood Count 3.60 #L Hemoglobin 9.1 #L Hematocrit 28.3 #L Mean Corpuscular Volume 78.6 L Mean Corpuscular Hemoglobin 25.3 L Mean Corpuscular Hemoglobin Concent 32.2 Red Cell Distribution Width 18.0 H Platelet Count 53 L Mean Platelet Volume 8.7 Neutrophils % 65.3 Lymphocytes % 22.2 Monocytes % 8.6 Eosinophils % 3.6 Basophils % 0.3 Nucleated Red Blood Cells % 0.0 Neutrophils # 2.2 Lymphocytes # 0.8 Monocytes # 0.3 Eosinophils # 0.1 Basophils # 0.0 Nucleated Red Blood Cells # 0.0 Test 10/14/16 13:15 Ammonia 13 Medications Medications Current Medications Lorazepam (Ativan) 1 mg Q2H PRN IV ANXIETY Last administered on 10/14/16 08:58 ; Admin Dose 1 MG; Start 10/11/16 at 19:00 Docusate Sodium 100 mg 100 mg Q12H PRN PO CONSTIPATION; Start 10/11/16 at 19:00 Norepinephrine 16 mg/Dextrose 500 ml @ 1.87 mls/hr TITRATE IV ; Start 10/11/16 at 19:30 Dextrose (D5W) 1,000 ml @ 150 mls/hr Q6H40M IV Last administered on 10/14/16 08:57; Admin Dose 150 MLS/HR; Start 10/12/16 at 10:30 Ondansetron HCl (Zofran Inj) 4 mg Q6H PRN IV NAUSEA AND/OR VOMITING Last administered on 10/12/16 12:03; Admin Dose 4 MG; Start 10/12/16 at 10:30 Methadone HCl (Methadone) 30 mg Q8 PO Last administered on 10/14/16t 14:05; Admin Dose 30 MG; Start 10/13/16 at 14:00 OSORIO MADDOX MD Oct 14, 2016 16:22
[2016-10-15] VITALS (13 sets, daily range): BP systolic 95–157; BP diastolic 50–68; PULSE 91–120; RESP 18–20
[2016-10-15] MEDS: DEXTROSE 5% 1,000 ML IV SCH ×3 (05:10→18:54)
[2016-10-15] MEDS: METHADONE 10 MG TAB PO SCH ×3 (05:37→21:30)
[2016-10-15 07:19] LABS: ADD SCAN DIFF NO
[2016-10-15 07:24] LABS: ABNORMAL IP MESSAGE 1; BASOPHILS % 0.2 % (0.0-2.0); EOSINOPHILS # 0.2 10^3/ul (0.0-0.5); EOSINOPHILS % 4.3 % (0.0-7.0); HEMOGLOBIN 9.6 g/dl (14.0-18.0); LYMPHOCYTES % 23.1 % (15.0-51.0); MEAN CORPUSCULAR HEMOGLOBIN 25.1 pg (29.0-33.0); MEAN CORPUSCULAR VOLUME 78.3 fl (82.0-101.0); MEAN PLATELET VOLUME 9.9 fl (7.4-10.4); MONOCYTE # 0.4 10^3/ul (0.3-0.9); MONOCYTES % 8.1 % (0.0-11.0); NEUTROPHIL # 2.8 10^3/ul (1.6-7.5); NEUTROPHILS % 64.1 % (39.0-77.0); PLATELET COUNT 55 10^3/UL (140-415); RED BLOOD COUNT 3.83 10^6/ul (4.70-6.10); RED CELL DISTRIBUTION WIDTH 17.7 % (11.5-14.5); WHITE BLOOD COUNT 4.4 10^3/ul (4.8-10.8)
[2016-10-15 07:53] LABS: CALCIUM 7.9 mg/dl (8.4-10.2); CREATININE 0.69 mg/dl (0.61-1.24); POTASSIUM 3.7 mmol/L (3.5-5.1)
--- NOTE | 2016-10-15 12:23 | PN ---
Date/Time of Note Date/Time of Note DATE: 10/15/16 TIME: 12:21 Assessment/Plan VTE Prophylaxis VTE Prophylaxis Intervention: SCD's Lines/Catheters IV Catheter Type (from Nrsg): Central Line Central line still needed: Yes Urinary Cath still in place: Yes Reason Cath still needed: urinary retention Assessment/Plan Chief Complaint/Hosp Course Assessment/Plan: 56 yo M yo with Pmhx heroin abuse brought in after being found down at home for unclear amount of time, with + anion gap metabolic acidosis 2/ 2 profound lactic acidosis of unclear etiology, and possible rhabdo. PLAN cont aggressive IVF hydration -rhabdo has resolved monitor withdrawal smpts, anti-emetic as well, follow-up pain team care recommendations for pain mngt, continue physical therapy as well For thrombocytopenia, possibly related to patient's liver disease,monitor for now. No signs of any bleeding presently. We will also obtain GI consult given the hepatitis For low hemoglobin-received blood transfusion 2 days, hemoglobin more stable. Follow-up occult stool test. For hepatitis C positive, appreciate infectious disease consult. Again we will also get GI consult patient is also hepatitis B positive. DVT prophx - SCD's Continue current diet. for high Na+-now resolved, monitor for now Problems: Subjective 24 Hr Interval Summary Free Text/Dictation Patient still quite lethargic, not able to work with physical therapy today. Otherwise tolerating diet, no acute events overnight. Seen by infectious disease team yesterday. Exam/Review of Systems Vital Signs Vitals Vital Signs Date Time Temp Pulse Resp B/P Pulse Ox O2 Delivery O2 Flow Rate FiO2 10/15/16 11:58 98.1 107 18 133/68 94 10/15/16 10:09 Nasal Cannula 2.0 Intake and Output 10/14/16 10/14/16 10/15/16 15:00 23:00 07:00 Intake Total 2750 ml 2100 ml Output Total 1500 ml 2000 ml Balance 1250 ml 100 ml Exam Lying in bed, sleeping, no acute distress tongue appears dry less tachy, no mrg lungs clear abd soft no rashes or track hayes no edema Results Result Diagram: 10/15/1662510/15/16625 Results 24 hrs Laboratory Tests Test 10/14/16 13:15 10/15/16 06:26 Ammonia 13 White Blood Count 4.4 #L Red Blood Count 3.83 L Hemoglobin 9.6 L Hematocrit 30.0 L Mean Corpuscular Volume 78.3 L Mean Corpuscular Hemoglobin 25.1 L Mean Corpuscular Hemoglobin Concent 32.0 Red Cell Distribution Width 17.7 H Platelet Count 55 L Mean Platelet Volume 9.9 Neutrophils % 64.1 Lymphocytes % 23.1 Monocytes % 8.1 Eosinophils % 4.3 Basophils % 0.2 Nucleated Red Blood Cells % 0.0 Neutrophils # 2.8 Lymphocytes # 1.0 Monocytes # 0.4 Eosinophils # 0.2 Basophils # 0.0 Nucleated Red Blood Cells # 0.0 Sodium Level 135 Potassium Level 3.7 Chloride Level 98 Carbon Dioxide Level 26 Anion Gap 15 Blood Urea Nitrogen 9 Creatinine 0.69 Glucose Level 93 Calcium Level 7.9 L Medications Medications Current Medications Lorazepam (Ativan) 1 mg Q2H PRN IV ANXIETY Last administered on 10/14/16 08:58 ; Admin Dose 1 MG; Start 10/11/16 at 19:00 Docusate Sodium 100 mg 100 mg Q12H PRN PO CONSTIPATION; Start 10/11/16 at 19:00 Norepinephrine 16 mg/Dextrose 500 ml @ 1.87 mls/hr TITRATE IV ; Start 10/11/16 at 19:30 Dextrose (D5W) 1,000 ml @ 150 mls/hr Q6H40M IV Last administered on 10/15/16 05:10; Admin Dose 150 MLS/HR; Start 10/12/16 at 10:30 Ondansetron HCl (Zofran Inj) 4 mg Q6H PRN IV NAUSEA AND/OR VOMITING Last administered on 10/12/16 12:03; Admin Dose 4 MG; Start 10/12/16 at 10:30 Methadone HCl (Methadone) 30 mg Q8 PO Last administered on 10/15/16 05:37; Admin Dose 30 MG; Start 10/13/16 at 14:00 CHRISTY MCDONALD Oct 15, 2016 12:23
--- NOTE | 2016-10-15 15:31 | CONS ---
Date/Time of Note Date/Time of Note DATE: 10/15/16 TIME: 15:30 Assessment/Plan Assessment/Plan Chief Complaint/Hosp Course No acute events, no fevers lying comfortably in bed temperature 98.1 pulse 107 respirations 18 blood pressure 133/68 saturation 94 on 2 L WBC 4.4 platelets 55, no shift, no bands BN 9 creatinine 0.69 Physical examination: Well-developed middle-aged man who is in no distress. Head atraumatic, normocephalic bugle mucosa dry. Neck is supple, trachea midline, chest rise symmetrical, breath sounds diminished basis, heart S1-S2 abdomen soft bowel tones present extremities without cyanosis Assessment: 1. Hepatitis C virus 2. Heroine addiction 3. Anemia thrombocytopenia Plan: Stable off antibiotics, all cultures negative, await for GI eval, will see as needed Problems: Consultation Date/Type/Reason Admit Date/Time Oct 11, 2016 at 18:38 Initial Consult Date Type of Consultation: ID Exam/Review of Systems Vital Signs Vitals Vital Signs Date Time Temp Pulse Resp B/P Pulse Ox O2 Delivery O2 Flow Rate FiO2 10/15/16 14:26 85 3.0 10/15/16 13:31 Nasal Cannula 10/15/16 12:45 94 10/15/16 11:58 98.1 18 133/68 Intake and Output 10/14/16 10/14/16 10/15/16 15:00 23:00 07:00 Intake Total 2750 ml 2100 ml Output Total 1500 ml 2000 ml Balance 1250 ml 100 ml Results Result Diagram: 10/15/16 0626 10/15/16 0626 Results 24 hrs Laboratory Tests Test 10/15/16 06:26 White Blood Count 4.4 #L Red Blood Count 3.83 L Hemoglobin 9.6 L Hematocrit 30.0 L Mean Corpuscular Volume 78.3 L Mean Corpuscular Hemoglobin 25.1 L Mean Corpuscular Hemoglobin Concent 32.0 Red Cell Distribution Width 17.7 H Platelet Count 55 L Mean Platelet Volume 9.9 Neutrophils % 64.1 Lymphocytes % 23.1 Monocytes % 8.1 Eosinophils % 4.3 Basophils % 0.2 Nucleated Red Blood Cells % 0.0 Neutrophils # 2.8 Lymphocytes # 1.0 Monocytes # 0.4 Eosinophils # 0.2 Basophils # 0.0 Nucleated Red Blood Cells # 0.0 Sodium Level 135 Potassium Level 3.7 Chloride Level 98 Carbon Dioxide Level 26 Anion Gap 15 Blood Urea Nitrogen 9 Creatinine 0.69 Glucose Level 93 Calcium Level 7.9 L Medications Medications Current Medications Lorazepam (Ativan) 1 mg Q2H PRN IV ANXIETY Last administered on 10/14/16 08:58 ; Admin Dose 1 MG; Start 10/11/16 at 19:00 Docusate Sodium 100 mg 100 mg Q12H PRN PO CONSTIPATION; Start 10/11/16 at 19:00 Norepinephrine 16 mg/Dextrose 500 ml @ 1.87 mls/hr TITRATE IV ; Start 10/11/16 at 19:30 Dextrose (D5W) 1,000 ml @ 150 mls/hr Q6H40M IV Last administered on 10/15/16 12:30; Admin Dose 150 MLS/HR; Start 10/12/16 at 10:30 Ondansetron HCl (Zofran Inj) 4 mg Q6H PRN IV NAUSEA AND/OR VOMITING Last administered on 10/12/16 12:03; Admin Dose 4 MG; Start 10/12/16 at 10:30 Methadone HCl (Methadone) 30 mg Q8 PO Last administered on 10/15/16 05:37; Admin Dose 30 MG; Start 10/13/16 at 14:00 PHILL BRYAN NP Oct 15, 2016 15:31
--- NOTE | 2016-10-15 16:19 | CONS ---
Date/Time of Note Date/Time of Note DATE: 10/15/16 TIME: 16:09 Assessment/Plan Assessment/Plan Additional Assessment/Plan Assessment * Sepsis improving * Hepatitis c infection * Elevated creatinine kinase * Hx of alcohol abuse * Hx of drug abuse Plan * continue present management * Hepatis c can be managed as outpatient basis * further orders will depend clinical course Consultation Date/Type/Reason Admit Date/Time Oct 11, 2016 at 18:38 Date of Consultation: Oct 15, 2016 Type of Consultation: gastroenterology Reason for Consultation hep c positive Referring Provider: CHRISTY MCDONALD Hx of Present Illness 56 year old male with past medical history of hepatitis c diagnosed 2 years ago was referred of evaluation of high viral load.Patient was presently admitted because of altered level of consciousness wwhere he was diagnosed with sepsis.Laboratory workup revealed Hep C positive with viral count 08301,AST 98, alt 49,alk phosphatase 96 creatine kinase 1100.patient denies any episode of hematemesis,abdominal pain,hematochezia nor any changes in bowel movement.Patient is aware of his hep c infection for the past 2 years and is allegedly under the care of liver doctor Psychological: anxiety, other (Aggressive and irritated) Social History Smoking Status: Current every day smoker Exam/Review of Systems Vital Signs Vitals Vital Signs Date Time Temp Pulse Resp B/P Pulse Ox O2 Delivery O2 Flow Rate FiO2 10/15/16 15:52 99.4 114 18 119/63 95 10/15/16 14:26 3.0 10/15/16 13:31 Nasal Cannula Intake and Output 10/14/16 10/14/16 10/15/16 15:00 23:00 07:00 Intake Total 2750 ml 2100 ml Output Total 1500 ml 2000 ml Balance 1250 ml 100 ml Exam Constitutional: alert, oriented, well developed Psych: nl mood/affect, no complaints Head: atraumatic, normocephalic Eyes: EOMI, PERRL, nl conjunctiva, nl lids, nl sclera ENMT: nl external ears & nose, nl lips & teeth, nl nasal mucosa & septum Neck: non-tender, supple Respiratory: clear to auscultation, normal air movement Cardiovascular: nl pulses, regular rate and rhythm Gastrointestinal: nl liver, spleen, non-tender, soft Musculoskeletal: nl extremities to inspection, nl gait and stance Extremities: normal pulses Neurological: PLUMBER MAINTENANCE II-XII intact, nl mental status, nl speech, nl strength Skin: nl turgor, No rash or lesions Lymph: nl lymph nodes Results Result Diagram: 10/15/1626 10/15/16 0626 Results 24 hrs Laboratory Tests Test 10/15/16 06:26 White Blood Count 4.4 #L Red Blood Count 3.83 L Hemoglobin 9.6 L Hematocrit 30.0 L Mean Corpuscular Volume 78.3 L Mean Corpuscular Hemoglobin 25.1 L Mean Corpuscular Hemoglobin Concent 32.0 Red Cell Distribution Width 17.7 H Platelet Count 55 L Mean Platelet Volume 9.9 Neutrophils % 64.1 Lymphocytes % 23.1 Monocytes % 8.1 Eosinophils % 4.3 Basophils % 0.2 Nucleated Red Blood Cells % 0.0 Neutrophils # 2.8 Lymphocytes # 1.0 Monocytes # 0.4 Eosinophils # 0.2 Basophils # 0.0 Nucleated Red Blood Cells # 0.0 Sodium Level 135 Potassium Level 3.7 Chloride Level 98 Carbon Dioxide Level 26 Anion Gap 15 Blood Urea Nitrogen 9 Creatinine 0.69 Glucose Level 93 Calcium Level 7.9 L Medications Medications Current Medications Lorazepam (Ativan) 1 mg Q2H PRN IV ANXIETY Last administered on 10/14/16 08:58 ; Admin Dose 1 MG; Start 10/11/16 at 19:00 Docusate Sodium 100 mg 100 mg Q12H PRN PO CONSTIPATION; Start 10/11/16 at 19:00 Norepinephrine 16 mg/Dextrose 500 ml @ 1.87 mls/hr TITRATE IV ; Start 10/11/16 at 19:30 Dextrose (D5W) 1,000 ml @ 150 mls/hr Q6H40M IV Last administered on 10/15/16 12:30; Admin Dose 150 MLS/HR; Start 10/12/16 at 10:30 Ondansetron HCl (Zofran Inj) 4 mg Q6H PRN IV NAUSEA AND/OR VOMITING Last administered on 10/12/16 12:03; Admin Dose 4 MG; Start 10/12/16 at 10:30 Methadone HCl (Methadone) 30 mg Q8 PO Last administered on 10/15/16 05:37; Admin Dose 30 MG; Start 10/13/16 at 14:00 SUSAN CANCINO MD Oct 15, 2016 16:19
[2016-10-16 02:54] VITALS: BP 150/65; RESP 18
[2016-10-16] MEDS: DEXTROSE 5% 1,000 ML IV SCH ×5 (04:00→23:55)
[2016-10-16 05:04] LABS: ADD SCAN DIFF NO
[2016-10-16 05:11] LABS: ABNORMAL IP MESSAGE 1; BASOPHILS % 0.3 % (0.0-2.0); EOSINOPHILS # 0.2 10^3/ul (0.0-0.5); EOSINOPHILS % 3.7 % (0.0-7.0); HEMOGLOBIN 9.3 g/dl (14.0-18.0); LYMPHOCYTES # 1.3 10^3/ul (0.8-2.9); LYMPHOCYTES % 21.4 % (15.0-51.0); MEAN CORPUSCULAR HEMOGLOBIN 25.2 pg (29.0-33.0); MEAN CORPUSCULAR HGB CONC 32.1 g/dl (32.0-37.0); MEAN CORPUSCULAR VOLUME 78.6 fl (82.0-101.0); MEAN PLATELET VOLUME 9.1 fl (7.4-10.4); MONOCYTE # 0.6 10^3/ul (0.3-0.9); MONOCYTES % 10.5 % (0.0-11.0); NEUTROPHIL # 3.8 10^3/ul (1.6-7.5); NEUTROPHILS % 63.8 % (39.0-77.0); PLATELET COUNT 67 10^3/UL (140-415); RED BLOOD COUNT 3.69 10^6/ul (4.70-6.10); RED CELL DISTRIBUTION WIDTH 17.3 % (11.5-14.5)
[2016-10-16 05:34] LABS: CALCIUM 7.9 mg/dl (8.4-10.2); CREATININE 0.68 mg/dl (0.61-1.24); POTASSIUM 3.9 mmol/L (3.5-5.1)
[2016-10-16] MEDS: METHADONE 10 MG TAB PO SCH ×2 (06:26→14:00)
[2016-10-16] MEDS: ONDANSETRON 4 MG INJ IV PRN (06:27)
--- NOTE | 2016-10-16 08:46 | PN ---
Date/Time of Note Date/Time of Note DATE: 10/16/16 TIME: 08:42 Assessment/Plan VTE Prophylaxis VTE Prophylaxis Intervention: ambulation Lines/Catheters IV C[facility] ([facility] Central Line Central line still needed: Yes Urinary Cath still in place: Yes Reason Cath still needed: urinary retention Assessment/Plan Assessment/Plan Assessment * Sepsis improving * Anemia improved * Hepatitis c infection * Elevated creatinine kinase * Hx of alcohol abuse * Hx of drug abuse Plan * continue present management * case discussed with Dr Lawrence * Hepatis c can be managed as outpatient basis * further orders will depend clinical course Subjective 24 Hr Interval Summary Free Text/Dictation * course reviewed with RN * Patient seen and examined * No untoward events overnight * latest hemoglobin 9 Exam/Review of Systems Vital Signs Vitals Vital Signs Date Time Temp Pulse Resp B/P Pulse Ox O2 Delivery O2 Flow Rate FiO2 10/16/16 02:54 98.8 82 18 150/65 90 10/15/16 21:15 Room Air 10/15/16 14:26 3.0 Intake and Output 10/15/16 10/15/16 10/16/16 15:00 23:00 07:00 Intake Total 1495 ml 1650 ml Output Total 1 ml 1800 ml 1100 ml Balance -1 ml -305 ml 550 ml Exam Constitutional: alert, oriented Head: normocephalic Neck: supple Respiratory: clear to auscultation Cardiovascular: regular rate and rhythm Gastrointestinal: soft Musculoskeletal: nl extremities to inspection Neurological: nl speech, nl strength Skin: nl turgor, No rash or lesions Results Result Diagram: 10/16/16 0458 10/16/16 0458 Results 24 hrs Laboratory Tests Test 10/16/16 04:58 White Blood Count 6.0 # Red Blood Count 3.69 L Hemoglobin 9.3 L Hematocrit 29.0 L Mean Corpuscular Volume 78.6 L Mean Corpuscular Hemoglobin 25.2 L Mean Corpuscular Hemoglobin Concent 32.1 Red Cell Distribution Width 17.3 H Platelet Count 67 #L Mean Platelet Volume 9.1 Neutrophils % 63.8 Lymphocytes % 21.4 Monocytes % 10.5 Eosinophils % 3.7 Basophils % 0.3 Neutrophils # 3.8 Lymphocytes # 1.3 Monocytes # 0.6 Eosinophils # 0.2 Basophils # 0.0 Nucleated Red Blood Cells # 0.0 Sodium Level 133 L Potassium Level 3.9 Chloride Level 91 L Carbon Dioxide Level 34 H Anion Gap 12 Blood Urea Nitrogen 10 Creatinine 0.68 Glucose Level 100 Calcium Level 7.9 L Medications Medications Current Medications Lorazepam (Ativan) 1 mg Q2H PRN IV ANXIETY Last administered on 10/14/16 08:58 ; Admin Dose 1 MG; Start 10/11/16 at 19:00 Docusate Sodium 100 mg 100 mg Q12H PRN PO CONSTIPATION; Start 10/11/16 at 19:00 Dextrose (D5W) 1,000 ml @ 150 mls/hr Q6H40M IV Last administered on 10/16/16 04:00; Admin Dose 150 MLS/HR; Start 10/12/16 at 10:30 Ondansetron HCl (Zofran Inj) 4 mg Q6H PRN IV NAUSEA AND/OR VOMITING Last administered on 10/16/16 06:27; Admin Dose 4 MG; Start 10/12/16 at 10:30 Methadone HCl (Methadone) 30 mg Q8 PO Last administered on 10/16/16 06:26; Admin Dose 30 MG; Start 10/13/16 at 14:00 BRIDGET LANIER NP Oct 16, 2016 08:46
--- NOTE | 2016-10-16 13:59 | PN ---
Date/Time of Note Date/Time of Note DATE: 10/16/16 TIME: 13:57 Assessment/Plan VTE Prophylaxis VTE Prophylaxis Intervention: SCD's Lines/Catheters IV Catheter Type (from Nrsg): Central Line Central line still needed: Yes Urinary Cath still in place: Yes Reason Cath still needed: urinary retention Assessment/Plan Chief Complaint/Hosp Course Assessment/Plan: 56 yo M yo with Pmhx heroin abuse brought in after being found down at home for unclear amount of time, with + anion gap metabolic acidosis 2/ 2 profound lactic acidosis of unclear etiology, and possible rhabdo. PLAN cont aggressive IVF hydration -rhabdo has resolved monitor withdrawal smpts, anti-emetic as well, follow-up pain team care recommendations for pain mngt, continue physical therapy as well For thrombocytopenia, possibly related to patient's liver disease,monitor for now. No signs of any bleeding presently. F/u GI consult rec's For low hemoglobin-received blood transfusion 3 days, hemoglobin more stable. Follow-up occult stool test. For hepatitis C positive, appreciate infectious disease consult. Pt also Hep B positive. Likely mngt of Hepatitis as outpt, per GI. DVT prophx - SCD's Continue current diet. for high Na+-now resolved, monitor for now Problems: Subjective 24 Hr Interval Summary Free Text/Dictation Pt had no acute events overnight. Exam/Review of Systems Vital Signs Vitals Vital Signs Date Time Temp Pulse Resp B/P Pulse Ox O2 Delivery O2 Flow Rate FiO2 10/16/16 02:54 98.8 82 18 150/65 90 10/15/16 21:15 Room Air 10/15/16 14:26 3.0 Intake and Output 10/15/16 10/15/16 10/16/16 15:00 23:00 07:00 Intake Total 1495 ml 1650 ml Output Total 1 ml 1800 ml 1100 ml Balance -1 ml -305 ml 550 ml Exam Lying in bed, sleeping, no acute distress tongue appears dry less tachy, no mrg lungs clear abd soft no rashes or track hayes no edema Results Result Diagram: 10/16/16 0458 10/16/16 0458 Results 24 hrs Laboratory Tests Test 10/16/16 04:58 White Blood Count 6.0 # Red Blood Count 3.69 L Hemoglobin 9.3 L Hematocrit 29.0 L Mean Corpuscular Volume 78.6 L Mean Corpuscular Hemoglobin 25.2 L Mean Corpuscular Hemoglobin Concent 32.1 Red Cell Distribution Width 17.3 H Platelet Count 67 #L Mean Platelet Volume 9.1 Neutrophils % 63.8 Lymphocytes % 21.4 Monocytes % 10.5 Eosinophils % 3.7 Basophils % 0.3 Neutrophils # 3.8 Lymphocytes # 1.3 Monocytes # 0.6 Eosinophils # 0.2 Basophils # 0.0 Nucleated Red Blood Cells # 0.0 Sodium Level 133 L Potassium Level 3.9 Chloride Level 91 L Carbon Dioxide Level 34 H Anion Gap 12 Blood Urea Nitrogen 10 Creatinine 0.68 Glucose Level 100 Calcium Level 7.9 L Medications Medications Current Medications Lorazepam (Ativan) 1 mg Q2H PRN IV ANXIETY Last administered on 10/14/16 08:58 ; Admin Dose 1 MG; Start 10/11/16 at 19:00 Docusate Sodium 100 mg 100 mg Q12H PRN PO CONSTIPATION; Start 10/11/16 at 19:00 Dextrose (D5W) 1,000 ml @ 150 mls/hr Q6H40M IV Last administered on 10/16/16 11:19; Admin Dose 150 MLS/HR; Start 10/12/16 at 10:30 Ondansetron HCl (Zofran Inj) 4 mg Q6H PRN IV NAUSEA AND/OR VOMITING Last administered on 10/16/16 06:27; Admin Dose 4 MG; Start 10/12/16 at 10:30 Methadone HCl (Methadone) 30 mg Q8 PO Last administered on 10/16/16 06:26; Admin Dose 30 MG; Start 10/13/16 at 14:00 CHRISTY MCDONALD Oct 16, 2016 13:59
[2016-10-16 14:21] VITALS: BP 140/65; PULSE 130; RESP 15
[2016-10-16] MEDS ORDERED: NALOXONE 2 MG SYG IV ONE (14:30)
[2016-10-16 14:43] LABS: AADO2 Arterial 68.2 mmHg (7.0-24.0); Allen Test ACCEPTAB; Arterial Base Excess 5.4 mmol/L (-3.0-3); Arterial COHb 0.5 % (0.0-3.0); Arterial Fraction of Oxyhgb 96.7 % (93.0-99.0); Arterial HCO3 29.3 mmol/L (22.0-26.0); Arterial MetHb 0.4 % (0.0-1.5); Arterial Total Hemglobin 11.3 g/dl (12.0-18.0); MODE NASAL CANNULA
[2016-10-16 20:55] VITALS: BP 118/56; RESP 18
[2016-10-16] MEDS: LACTULOSE 30ML CUP PO SCH (21:03)
[2016-10-17 02:27] VITALS: BP 121/63; RESP 18
[2016-10-17] MEDS ORDERED: PANT40TA3 PO (04:22)
[2016-10-17] MEDS ORDERED: FURO-110 PO (04:22)
[2016-10-17] MEDS ORDERED: SPIR25TA PO (04:22)
[2016-10-17] MEDS ORDERED: FOLI-49 PO (04:22)
[2016-10-17] MEDS ORDERED: THIA100T10 PO (04:22)
[2016-10-17] MEDS ORDERED: PROP20TA4 PO (04:22)
[2016-10-17] MEDS ORDERED: LACT10SO5 PO (04:22)
[2016-10-17 05:56] LABS: ABNORMAL IP MESSAGE 1; BASOPHILS % 0.4 % (0.0-2.0); EOSINOPHILS # 0.2 10^3/ul (0.0-0.5); EOSINOPHILS % 3.7 % (0.0-7.0); HEMATOCRIT 28.7 % (42.0-52.0); HEMOGLOBIN 8.9 g/dl (14.0-18.0); LYMPHOCYTES # 1.2 10^3/ul (0.8-2.9); LYMPHOCYTES % 24.8 % (15.0-51.0); MEAN CORPUSCULAR HEMOGLOBIN 24.6 pg (29.0-33.0); MEAN CORPUSCULAR VOLUME 79.3 fl (82.0-101.0); MEAN PLATELET VOLUME 9.3 fl (7.4-10.4); MONOCYTE # 0.7 10^3/ul (0.3-0.9); MONOCYTES % 14.3 % (0.0-11.0); NEUTROPHIL # 2.8 10^3/ul (1.6-7.5); NEUTROPHILS % 56.6 % (39.0-77.0); PLATELET COUNT 60 10^3/UL (140-415); POSITIVE DIFF @See below; RED BLOOD COUNT 3.62 10^6/ul (4.70-6.10); RED CELL DISTRIBUTION WIDTH 17.9 % (11.5-14.5); WHITE BLOOD COUNT 4.9 10^3/ul (4.8-10.8)
[2016-10-17] MEDS: DEXTROSE 5% 1,000 ML IV SCH ×2 (06:29→12:58)
[2016-10-17 06:38] LABS: CALCIUM 7.6 mg/dl (8.4-10.2); CREATININE 0.76 mg/dl (0.61-1.24); POTASSIUM 3.7 mmol/L (3.5-5.1)
[2016-10-17 08:00] VITALS: BP 115/64; RESP 20
--- NOTE | 2016-10-17 09:17 | PN ---
Date/Time of Note Date/Time of Note DATE: 10/17/16 TIME: 09:13 Assessment/Plan VTE Prophylaxis VTE Prophylaxis Intervention: SCD's Lines/Catheters [facility] Central Line Central line still needed: Yes Urinary Cath still in place: Yes Reason Cath still needed: urinary retention Assessment/Plan Assessment/Plan Assessment * Sepsis improving * Anemia 8.9 * Hepatitis c infection * Elevated creatinine kinase * Hx of alcohol abuse * Hx of drug abuse Plan * trend hemoglobin and hematocrit * Awaiting stool occult blood * continue present management * case discussed with Dr Lawrence * Hepatis c can be managed as outpatient basis * further orders will depend clinical course Subjective 24 Hr Interval Summary Free Text/Dictation * Course reviewed with RN * patient seen and examined * No untoward events overnight * No evidenced of hematemesis * Awaiting occult blood result Exam/Review of Systems Vital Signs Vitals Vital Signs Date Time Temp Pulse Resp B/P Pulse Ox O2 Delivery O2 Flow Rate FiO2 10/17/16 02:27 98.7 80 18 121/63 100 10/16/16 14:21 Nasal Cannula 3.0 Intake and Output 10/16/16 10/16/16 10/17/16 15:00 23:00 07:00 Intake Total 900 ml 950 ml 2020 ml Output Total 2100 ml 2400 ml Balance 900 ml -1150 ml -380 ml Exam Constitutional: alert, oriented Eyes: nl conjunctiva Neck: supple Respiratory: clear to auscultation, normal air movement Cardiovascular: nl pulses, regular rate and rhythm Gastrointestinal: nl liver, spleen, non-tender, soft Musculoskeletal: nl extremities to inspection, nl gait and stance Extremities: normal pulses Neurological: nl mental status, nl speech, nl strength Skin: nl turgor, No rash or lesions Results Result Diagram: 10/17/16 0453 10/17/16 0453 Results 24 hrs Laboratory Tests Test 10/16/16 14:09 10/16/16 14:15 10/16/16 19:50 10/17/16 04:53 Bedside Glucose 119 Blood Gas Specimen Source Blood arterial Arterial Blood Date Drawn 10/16/2016 2:30:53 PM Arterial Blood pH (Temp corrected) 7.480 H Arterial Blood pCO2 (Temp correct) 40.3 Arterial Blood pO2 (Temp corrected) 98.4 Arterial Blood HCO3 29.3 H Arterial Blood Base Excess 5.4 H Arterial Blood Oxygen Saturation 97.6 Jonathan Test ACCEPTAB Arterial Blood Gas Puncture Site Left Radial Arterial Blood Carboxyhemoglobin 0.5 Arterial Blood Methemoglobin 0.4 Blood Gas A-a O2 Differential 68.2 H Oxyhemoglobin Percent 96.7 Total Hemoglobin 11.3 L Blood Gas Temperature 37.0 Blood Gas Modality NASAL CANNULA FiO2 30.0 Blood Gas Notified Whom JLD Blood Gas Notified Time 10/16/2016 2:43:26 PM Ammonia 36 #H White Blood Count 4.9 Red Blood Count 3.62 L Hemoglobin 8.9 L Hematocrit 28.7 L Mean Corpuscular Volume 79.3 L Mean Corpuscular Hemoglobin 24.6 L Mean Corpuscular Hemoglobin Concent 31.0 L Red Cell Distribution Width 17.9 H Platelet Count 60 L Mean Platelet Volume 9.3 Neutrophils % 56.6 Lymphocytes % 24.8 Monocytes % 14.3 H Eosinophils % 3.7 Basophils % 0.4 Nucleated Red Blood Cells % 0.0 Neutrophils # 2.8 Lymphocytes # 1.2 Monocytes # 0.7 Eosinophils # 0.2 Basophils # 0.0 Nucleated Red Blood Cells # 0.0 Sodium Level 136 Potassium Level 3.7 Chloride Level 93 L Carbon Dioxide Level 37 H Anion Gap 10 Blood Urea Nitrogen 7 Creatinine 0.76 Glucose Level 106 Calcium Level 7.6 L Medications Medications Current Medications Lorazepam (Ativan) 1 mg Q2H PRN IV ANXIETY Last administered on 10/14/16 08:58 ; Admin Dose 1 MG; Start 10/11/16 at 19:00 Docusate Sodium 100 mg 100 mg Q12H PRN PO CONSTIPATION; Start 10/11/16 at 19:00 Dextrose (D5W) 1,000 ml @ 150 mls/hr Q6H40M IV Last administered on 10/17/16 06:29; Admin Dose 150 MLS/HR; Start 10/12/16 at 10:30 Ondansetron HCl (Zofran Inj) 4 mg Q6H PRN IV NAUSEA AND/OR VOMITING Last administered on 10/16/16 06:27; Admin Dose 4 MG; Start 10/12/16 at 10:30 Methadone HCl (Methadone) 30 mg Q8 PO Last administered on 10/16/16 06:26; Admin Dose 30 MG; Start 10/13/16 at 14:00; Status Future Hold Lactulose (Enulose) 15 gm BID PO Last administered on 10/16/16t 21:03; Admin Dose 15 GM; Start 10/16/16 at 21:00 BRIDGET LANIER NP Oct 17, 2016 09:17
[2016-10-17] MEDS: LACTULOSE 30ML CUP PO SCH ×2 (09:51→22:04)
--- NOTE | 2016-10-17 13:39 | PN ---
Date/Time of Note Date/Time of Note DATE: 10/17/16 TIME: 13:37 Assessment/Plan VTE Prophylaxis VTE Prophylaxis Intervention: SCD's Lines/Catheters IV Catheter Type (from Nrsg): Central Line Central line still needed: Yes Urinary Cath still in place: Yes Reason Cath still needed: urinary retention Assessment/Plan Chief Complaint/Hosp Course Assessment/Plan: 56 yo M yo with Pmhx heroin abuse brought in after being found down at home for unclear amount of time, with + anion gap metabolic acidosis 2/ 2 profound lactic acidosis of unclear etiology, and possible rhabdo. PLAN Will hold IVF hydration for now as rhabdo has resolved. monitor for withdrawal smpts, continue anti-emetic as well, follow-up pain team care recommendations for pain mngt (presently holding his methadone), continue physical therapy as well For thrombocytopenia, possibly related to patient's liver disease,monitor for now. No signs of any bleeding presently. F/u GI consult rec's For low hemoglobin-received blood transfusion 4 days, hemoglobin more stable. Follow-up occult stool test (still pending) For hepatitis C positive, appreciate infectious disease consult. Pt also Hep B positive. Likely mngt of Hepatitis as outpt, per GI. DVT prophx - SCD's Continue current diet. for high Na+-now resolved, monitor for now Problems: Subjective 24 Hr Interval Summary Free Text/Dictation Patient had INFUSION NURSE yesterday because of altered mental status, likely due to opioid intoxication, responded with Narcan. No acute events overnight, eating with assistance. Exam/Review of Systems Vital Signs Vitals Vital Signs Date Time Temp Pulse Resp B/P Pulse Ox O2 Delivery O2 Flow Rate FiO2 10/17/16 08:00 98.1 82 20 115/64 97 10/16/16 14:21 Nasal Cannula 3.0 Intake and Output 10/16/16 10/16/16 10/17/16 15:00 23:00 07:00 Intake Total 900 ml 950 ml 2020 ml Output Total 2100 ml 2400 ml Balance 900 ml -1150 ml -380 ml Exam Lying in bed, sleeping, no acute distress tongue appears less dry less tachy, no mrg lungs clear abd soft no rashes or track hayes no edema Results Result Diagram: 10/17/16 0453 10/17/16 0453 Results 24 hrs Laboratory Tests Test 10/16/16 14:09 10/16/16 14:15 10/16/16 19:50 10/17/16 04:53 Bedside Glucose 119 Blood Gas Specimen Source Blood arterial Arterial Blood Date Drawn 10/16/2016 2:30:53 PM Arterial Blood pH (Temp corrected) 7.480 H Arterial Blood pCO2 (Temp correct) 40.3 Arterial Blood pO2 (Temp corrected) 98.4 Arterial Blood HCO3 29.3 H Arterial Blood Base Excess 5.4 H Arterial Blood Oxygen Saturation 97.6 Jonathan Test ACCEPTAB Arterial Blood Gas Puncture Site Left Radial Arterial Blood Carboxyhemoglobin 0.5 Arterial Blood Methemoglobin 0.4 Blood Gas A-a O2 Differential 68.2 H Oxyhemoglobin Percent 96.7 Total Hemoglobin 11.3 L Blood Gas Temperature 37.0 Blood Gas Modality NASAL CANNULA FiO2 30.0 Blood Gas Notified Whom JLD Blood Gas Notified Time 10/16/2016 2:43:26 PM Ammonia 36 #H White Blood Count 4.9 Red Blood Count 3.62 L Hemoglobin 8.9 L Hematocrit 28.7 L Mean Corpuscular Volume 79.3 L Mean Corpuscular Hemoglobin 24.6 L Mean Corpuscular Hemoglobin Concent 31.0 L Red Cell Distribution Width 17.9 H Platelet Count 60 L Mean Platelet Volume 9.3 Neutrophils % 56.6 Lymphocytes % 24.8 Monocytes % 14.3 H Eosinophils % 3.7 Basophils % 0.4 Nucleated Red Blood Cells % 0.0 Neutrophils # 2.8 Lymphocytes # 1.2 Monocytes # 0.7 Eosinophils # 0.2 Basophils # 0.0 Nucleated Red Blood Cells # 0.0 Sodium Level 136 Potassium Level 3.7 Chloride Level 93 L Carbon Dioxide Level 37 H Anion Gap 10 Blood Urea Nitrogen 7 Creatinine 0.76 Glucose Level 106 Calcium Level 7.6 L Medications Medications Current Medications Lorazepam (Ativan) 1 mg Q2H PRN IV ANXIETY Last administered on 10/14/16 08:58 ; Admin Dose 1 MG; Start 10/11/16 at 19:00 Docusate Sodium (Colace) 100 mg Q12H PRN PO CONSTIPATION; Start 10/11/16 at 19: 00 Ondansetron HCl (Zofran Inj) 4 mg Q6H PRN IV NAUSEA AND/OR VOMITING Last administered on 10/16/16 06:27; Admin Dose 4 MG; Start 10/12/16 at 10:30 Methadone HCl (Methadone) 30 mg Q8 PO Last administered on 10/16/16 06:26; Admin Dose 30 MG; Start 10/13/16 at 14:00; Status Future Hold Lactulose (Enulose) 15 gm BID PO Last administered on 10/17/16 09:51; Admin Dose 15 GM; Start 10/16/16 at 21:00 Pantoprazole (Protonix Iv) 40 mg DAILY@06 IV ; Start 10/17/16 at 14:00 Folic Acid (Folic Acid) 1 mg DAILY PO ; Start 10/18/16 at 09:00; Status UNV Furosemide (Lasix) 20 mg DAILY PO ; Start 10/18/16 at 09:00; Status UNV Propranolol HCl (Inderal) 20 mg TID PO ; Start 10/17/16 at 21:00; Status UNV Spironolactone (Aldactone) 25 mg BID PO ; Start 10/17/16 at 21:00; Status UNV Thiamine HCl (Vitamin B1) 100 mg DAILY PO ; Start 10/18/16 at 09:00; Status UNV CHRISTY MCDONALD Oct 17, 2016 13:39
[2016-10-17 14:25] VITALS: BP 119/63; PULSE 80; RESP 18
[2016-10-17] MEDS: FUROSEMIDE 20 MG TAB PO SCH (14:28)
[2016-10-17] MEDS: PANTOPRAZOLE 40 MG INJ IV SCH (14:28)
[2016-10-17] MEDS: THIAMINE 100 MG TAB PO SCH (14:29)
[2016-10-17] MEDS: FOLIC ACID 1 MG TAB PO SCH (14:29)
[2016-10-17] MEDS: SPIRONOLACTONE 25 MG TAB PO SCH (18:00)
[2016-10-17 20:08] VITALS: BP 100/51; RESP 18
[2016-10-17] MEDS: DOCUSATE SODIUM 100 MG CAP PO PRN (22:04)
[2016-10-17] MEDS: PROPRANOLOL 20 MG TAB PO SCH (22:07)
[2016-10-18 02:28] VITALS: BP 109/53; RESP 16
[2016-10-18 05:25] LABS: ABNORMAL IP MESSAGE 1; BASOPHILS % 0.5 % (0.0-2.0); EOSINOPHILS # 0.2 10^3/ul (0.0-0.5); HEMATOCRIT 29.2 % (42.0-52.0); HEMOGLOBIN 9.2 g/dl (14.0-18.0); LYMPHOCYTES # 1.1 10^3/ul (0.8-2.9); LYMPHOCYTES % 26.7 % (15.0-51.0); MEAN CORPUSCULAR HEMOGLOBIN 25.1 pg (29.0-33.0); MEAN CORPUSCULAR HGB CONC 31.5 g/dl (32.0-37.0); MEAN CORPUSCULAR VOLUME 79.6 fl (82.0-101.0); MEAN PLATELET VOLUME 9.7 fl (7.4-10.4); MONOCYTE # 0.6 10^3/ul (0.3-0.9); MONOCYTES % 13.4 % (0.0-11.0); NEUTROPHIL # 2.3 10^3/ul (1.6-7.5); NEUTROPHILS % 54.2 % (39.0-77.0); POSITIVE DIFF @See below; RED BLOOD COUNT 3.67 10^6/ul (4.70-6.10); WHITE BLOOD COUNT 4.2 10^3/ul (4.8-10.8)
[2016-10-18 05:49] LABS: PLATELET COUNT 73 10^3/UL (140-415)
[2016-10-18 05:52] LABS: CALCIUM 7.9 mg/dl (8.4-10.2); CREATININE 0.64 mg/dl (0.61-1.24); POTASSIUM 3.8 mmol/L (3.5-5.1)
[2016-10-18] MEDS: PANTOPRAZOLE 40 MG INJ IV SCH (06:33)
[2016-10-18] MEDS: SPIRONOLACTONE 25 MG TAB PO SCH ×2 (06:33→17:49)
[2016-10-18] MEDS: FUROSEMIDE 20 MG TAB PO SCH (06:33)
[2016-10-18] MEDS ORDERED: NALOXONE (0.4 MG/ML) INJ ONE (07:00)
[2016-10-18 08:00] VITALS: BP 120/61; RESP 17
[2016-10-18] MEDS: LACTULOSE 30ML CUP PO SCH ×4 (08:20→23:33)
[2016-10-18] MEDS: PROPRANOLOL 20 MG TAB PO SCH ×3 (08:21→20:24)
[2016-10-18] MEDS: THIAMINE 100 MG TAB PO SCH (08:21)
[2016-10-18] MEDS: FOLIC ACID 1 MG TAB PO SCH (08:21)
--- NOTE | 2016-10-18 09:34 | PN ---
Date/Time of Note Date/Time of Note DATE: 10/18/16 TIME: 09:23 Assessment/Plan VTE Prophylaxis VTE Prophylaxis Intervention: ambulation Lines/Catheters IV C[facility]ter Type (from [facility] Central Line Central line still needed: Yes Urinary Cath still in place: Yes Reason Cath still needed: urinary retention Assessment/Plan Assessment/Plan Assessment * Sepsis improving * Anemia 8.9 * Elevated ammonia * Hepatitis c infection * Elevated creatinine kinase * Hx of alcohol abuse * Hx of drug abuse Plan * EGD Wednesday risks and benefit explained to patient and agreed with the planned procedure * trend hemoglobin and hematocrit * Awaiting stool occult blood * continue present management * case discussed with Dr Lawrence * Hepatis c can be managed as outpatient basis * further orders will depend clinical course Subjective 24 Hr Interval Summary Free Text/Dictation * course reviewed with RN * Patient seen and examined * No untoward events overnight * Elevated ammonia 75 * Latest hemoglobin 9.3 Exam/Review of Systems Vital Signs Vitals Vital Signs Date Time Temp Pulse Resp B/P Pulse Ox O2 Delivery O2 Flow Rate FiO2 10/18/16 08:00 98.4 69 17 120/61 95 10/17/16 14:25 Nasal Cannula 2.0 Intake and Output 10/17/16 10/17/16 10/18/16 15:00 23:00 07:00 Intake Total 975 ml 1200 ml 600 ml Output Total 2500 ml 1600 ml Balance 975 ml -1300 ml -1000 ml Exam Constitutional: frail Head: normocephalic Neck: non-tender, supple Respiratory: clear to auscultation, normal air movement Cardiovascular: nl pulses, regular rate and rhythm Gastrointestinal: nl liver, spleen, non-tender, soft Musculoskeletal: nl extremities to inspection, nl gait and stance Extremities: normal pulses Neurological: confused Skin: nl turgor Lymph: nl lymph nodes Results Result Diagram: 10/18/16 0445 10/18/16 0445 Results 24 hrs Laboratory Tests Test 10/18/16 04:45 White Blood Count 4.2 L Red Blood Count 3.67 L Hemoglobin 9.2 L Hematocrit 29.2 L Mean Corpuscular Volume 79.6 L Mean Corpuscular Hemoglobin 25.1 L Mean Corpuscular Hemoglobin Concent 31.5 L Red Cell Distribution Width 18.0 H Platelet Count 73 #L Mean Platelet Volume 9.7 Neutrophils % 54.2 Lymphocytes % 26.7 Monocytes % 13.4 H Eosinophils % 5.0 Basophils % 0.5 Nucleated Red Blood Cells % 0.0 Neutrophils # 2.3 Lymphocytes # 1.1 Monocytes # 0.6 Eosinophils # 0.2 Basophils # 0.0 Nucleated Red Blood Cells # 0.0 Sodium Level 136 Potassium Level 3.8 Chloride Level 90 L Carbon Dioxide Level 37 H Anion Gap 13 Blood Urea Nitrogen 9 Creatinine 0.64 Glucose Level 92 Calcium Level 7.9 L Ammonia 75 #H Medications Medications Current Medications Lorazepam (Ativan) 1 mg Q2H PRN IV ANXIETY Last administered on 10/14/16 08:58 ; Admin Dose 1 MG; Start 10/11/16 at 19:00 Docusate Sodium (Colace) 100 mg Q12H PRN PO CONSTIPATION Last administered on 22:04; Admin Dose 100 MG; Start 10/11/16 at 19:00 Ondansetron HCl (Zofran Inj) 4 mg Q6H PRN IV NAUSEA AND/OR VOMITING Last administered on 10/16/16 06:27; Admin Dose 4 MG; Start 10/12/16 at 10:30 Lactulose (Enulose) 15 gm BID PO Last administered on 10/18/16 08:20; Admin Dose 15 GM; Start 10/16/16 at 21:00 Pantoprazole (Protonix Iv) 40 mg DAILY@06 IV Last administered on 10/18/16 06: 33; Admin Dose 40 MG; Start 10/17/16 at 14:00 Folic Acid (Folic Acid) 1 mg DAILY PO Last administered on 10/18/16 08:21; Admin Dose 1 MG; Start 10/17/16 at 14:00 Furosemide (Lasix) 20 mg DAILY@06 PO Last administered on 10/18/16 06:33; Admin Dose 20 MG; Start 10/17/16 at 14:00 Propranolol HCl (Inderal) 20 mg TID PO Last administered on 10/18/16 08:21; Admin Dose 20 MG; Start 10/17/16 at 21:00 Spironolactone (Aldactone) 25 mg BID@06,18 PO Last administered on 10/18/16 06 :33; Admin Dose 25 MG; Start 10/17/16 at 18:00 Thiamine HCl (Vitamin B1) 100 mg DAILY PO Last administered on 10/18/16 08:21 ; Admin Dose 100 MG; Start 10/17/16 at 14:00 BRIDGET LANIER NP Oct 18, 2016 09:33
--- NOTE | 2016-10-18 12:52 | PN ---
Date/Time of Note Date/Time of Note DATE: 10/18/16 TIME: 12:50 Assessment/Plan VTE Prophylaxis VTE Prophylaxis Intervention: SCD's Lines/Catheters IV Catheter Type (from Nrsg): Central Line Central line still needed: Yes Urinary Cath still in place: Yes Reason Cath still needed: urinary retention Assessment/Plan Chief Complaint/Hosp Course Assessment/Plan: 56 yo M yo with Pmhx heroin abuse brought in after being found down at home for unclear amount of time, with + anion gap metabolic acidosis 2/ 2 profound lactic acidosis of unclear etiology, and possible rhabdo, improving.. PLAN Will hold IVF hydration for now as rhabdo has resolved. monitor for withdrawal smpts, continue anti-emetic as well, follow-up pain team care recommendations for pain mngt (presently holding his methadone), continue physical therapy as well For thrombocytopenia, possibly related to patient's liver disease,monitor for now. No signs of any bleeding presently. F/u GI consult rec's For low hemoglobin-received blood transfusion 5 days, hemoglobin more stable. Follow-up occult stool test (still pending). Per GI, planning for EGD tomorrow. For hepatitis C positive, appreciate infectious disease consult. Pt also Hep B positive. Likely mngt of Hepatitis as outpt, per GI. DVT prophx - SCD's Continue current diet. for high Na+-now resolved, monitor for now 4 hepatic encephalopathy, patient more alert when aroused, but still somewhat lethargic at rest. Ammonia levels are higher today. We will increase lactulose to 20 g p.o. 4 times daily, recheck ammonia levels in the morning. Problems: Subjective 24 Hr Interval Summary Free Text/Dictation Patient still lethargic at times, but more alert when aroused today. No acute events overnight. Denies any chest pain. Exam/Review of Systems Vital Signs Vitals Vital Signs Date Time Temp Pulse Resp B/P Pulse Ox O2 Delivery O2 Flow Rate FiO2 10/18/16 08:00 98.4 69 17 120/61 95 10/17/16 14:25 Nasal Cannula 2.0 Intake and Output 10/17/16 10/17/16 10/18/16 15:00 23:00 07:00 Intake Total 975 ml 1200 ml 600 ml Output Total 2500 ml 1600 ml Balance 975 ml -1300 ml -1000 ml Exam Lying in bed, alert when aroused, no acute distress tongue appears less dry less tachy, no mrg lungs clear abd soft no rashes or track hayes no edema Results Result Diagram: 10/18/1644410/18/16444 Results 24 hrs Laboratory Tests Test 10/18/16 04:45 White Blood Count 4.2 L Red Blood Count 3.67 L Hemoglobin 9.2 L Hematocrit 29.2 L Mean Corpuscular Volume 79.6 L Mean Corpuscular Hemoglobin 25.1 L Mean Corpuscular Hemoglobin Concent 31.5 L Red Cell Distribution Width 18.0 H Platelet Count 73 #L Mean Platelet Volume 9.7 Neutrophils % 54.2 Lymphocytes % 26.7 Monocytes % 13.4 H Eosinophils % 5.0 Basophils % 0.5 Nucleated Red Blood Cells % 0.0 Neutrophils # 2.3 Lymphocytes # 1.1 Monocytes # 0.6 Eosinophils # 0.2 Basophils # 0.0 Nucleated Red Blood Cells # 0.0 Sodium Level 136 Potassium Level 3.8 Chloride Level 90 L Carbon Dioxide Level 37 H Anion Gap 13 Blood Urea Nitrogen 9 Creatinine 0.64 Glucose Level 92 Calcium Level 7.9 L Ammonia 75 #H Medications Medications Current Medications Lorazepam (Ativan) 1 mg Q2H PRN IV ANXIETY Last administered on 10/14/16 08:58 ; Admin Dose 1 MG; Start 10/11/16 at 19:00 Docusate Sodium (Colace) 100 mg Q12H PRN PO CONSTIPATION Last administered on 22:04; Admin Dose 100 MG; Start 10/11/16 at 19:00 Ondansetron HCl (Zofran Inj) 4 mg Q6H PRN IV NAUSEA AND/OR VOMITING Last administered on 10/16/16 06:27; Admin Dose 4 MG; Start 10/12/16 at 10:30 Pantoprazole (Protonix Iv) 40 mg DAILY@06 IV Last administered on 10/18/16 06: 33; Admin Dose 40 MG; Start 10/17/16 at 14:00 Folic Acid (Folic Acid) 1 mg DAILY PO Last administered on 10/18/16 08:21; Admin Dose 1 MG; Start 10/17/16 at 14:00 Furosemide (Lasix) 20 mg DAILY@06 PO Last administered on 10/18/16 06:33; Admin Dose 20 MG; Start 10/17/16 at 14:00 Propranolol HCl (Inderal) 20 mg TID PO Last administered on 10/18/16 08:21; Admin Dose 20 MG; Start 10/17/16 at 21:00 Spironolactone (Aldactone) 25 mg BID@06,18 PO Last administered on 10/18/16 06 :33; Admin Dose 25 MG; Start 10/17/16 at 18:00 Thiamine HCl (Vitamin B1) 100 mg DAILY PO Last administered on 10/18/16 08:21 ; Admin Dose 100 MG; Start 10/17/16 at 14:00 Lactulose (Enulose) 15 gm Q6 PO ; Start 10/18/16 at 13:00; Status UNCHRISTY DAVALOS Oct 18, 2016 12:52
[2016-10-18 14:00] VITALS: BP 110/55; RESP 18
--- NOTE | 2016-10-18 17:18 | RADRPT ---
PROCEDURE: Complete abdominal ultrasound. CLINICAL INDICATION: Abdominal pain, alcoholism, cirrhosis TECHNIQUE: Kendrick scale and color doppler ultrasound images of the abdomen. COMPARISON: None FINDINGS: Pancreas: Not adequately visualized due to overlying bowel gas. Liver: Morphology: Normal in size and contour. Echogenicity: Mild coarsening of the hepatic echotexture is observed. Focal lesions: None. Main portal vein: Patent with hepatopetal flow. TIPS shunt is incompletely evaluated. Biliary System: Normal appearing gallbladder wall. No gallstones seen. No intrahepatic biliary dilatation. Common bile duct diameter: 4.9 mm Kidneys: Right length: 10.0 cm. Right renal cortical thickness is preserved. Left length: 10.1 cm. Left renal cortical thickness is preserved. Normal echogenicity. No hydronephrosis. No renal calculi. No focal renal lesions. Spleen: Normal in size, no focal lesions. Measures 13.1 cm. No free fluid identified. Normal caliber of the partially visualized aorta. IMPRESSION: Normal gallbladder without gallstones. Mild coarsening of the hepatic echotexture may represent early changes of steatosis or cirrhosis. N o definite evidence of contour nodularity or focal hepatic lesions are seen. TIPS shunt is present however is incompletely evaluated. RPTAT: AADD .Austin Denis MD, Date Time Electronically viewed and signed by .Austin Denis MD, on 10/18/2016 17:18 .B/
[2016-10-18] MEDS: DOCUSATE SODIUM 100 MG CAP PO PRN (17:49)
[2016-10-18 20:24] VITALS: BP 104/53; PULSE 62
[2016-10-18 20:36] VITALS: BP 102/51; RESP 18
[2016-10-18 21:37] VITALS: BP 103/42; PULSE 63
[2016-10-19] VITALS (8 sets, daily range): BP systolic 99–120; BP diastolic 45–67; PULSE 60–66; RESP 18
[2016-10-19] MEDS: PANTOPRAZOLE 40 MG INJ IV SCH (05:26)
[2016-10-19] MEDS: LACTULOSE 30ML CUP PO SCH ×3 (05:27→17:31)
[2016-10-19] MEDS: SPIRONOLACTONE 25 MG TAB PO SCH ×2 (05:31→17:31)
[2016-10-19] MEDS: FUROSEMIDE 20 MG TAB PO SCH (05:32)
[2016-10-19 06:03] LABS: ABNORMAL IP MESSAGE 1; BASOPHILS % 0.6 % (0.0-2.0); EOSINOPHILS # 0.3 10^3/ul (0.0-0.5); EOSINOPHILS % 5.4 % (0.0-7.0); HEMATOCRIT 30.5 % (42.0-52.0); HEMOGLOBIN 9.8 g/dl (14.0-18.0); LYMPHOCYTES # 1.9 10^3/ul (0.8-2.9); LYMPHOCYTES % 41.7 % (15.0-51.0); MEAN CORPUSCULAR HEMOGLOBIN 25.1 pg (29.0-33.0); MEAN CORPUSCULAR HGB CONC 32.1 g/dl (32.0-37.0); MEAN CORPUSCULAR VOLUME 78.2 fl (82.0-101.0); MEAN PLATELET VOLUME 10.1 fl (7.4-10.4); MONOCYTE # 0.7 10^3/ul (0.3-0.9); NEUTROPHIL # 1.8 10^3/ul (1.6-7.5); NEUTROPHILS % 38.1 % (39.0-77.0); PLATELET COUNT 75 10^3/UL (140-415); POSITIVE DIFF @See below; RED CELL DISTRIBUTION WIDTH 18.9 % (11.5-14.5); WHITE BLOOD COUNT 4.6 10^3/ul (4.8-10.8)
[2016-10-19 06:39] LABS: CALCIUM 8.7 mg/dl (8.4-10.2); CREATININE 0.71 mg/dl (0.61-1.24); POTASSIUM 3.5 mmol/L (3.5-5.1)
[2016-10-19] MEDS: PROPRANOLOL 20 MG TAB PO SCH ×3 (09:00→21:00)
[2016-10-19] MEDS: THIAMINE 100 MG TAB PO SCH (09:02)
[2016-10-19] MEDS: FOLIC ACID 1 MG TAB PO SCH (09:02)
--- NOTE | 2016-10-19 10:23 | PN ---
Date/Time of Note Date/Time of Note DATE: 10/19/16 TIME: 10:11 Assessment/Plan VTE Prophylaxis VTE Prophylaxis Intervention: ambulation, SCD's Lines/Catheters IV Catheter Type (from Nrs): Central Line Central line still needed: Yes Urinary Cath still in place: Yes Reason Cath still needed: other (indicate) Assessment/Plan Chief Complaint/Hosp Course 1. Status post heroine abuse -Continue education/counseling. Continue multivitamins and PRN Ativan. 2. Anion gap Lactic acidosis likely 2/2 hepatic steatosis/rhabdomyolysis. Resolved. No evidence of sepsis. 3. Status post rhabdomyolysis secondary to being down with #1. Resolved. 4.Hepatic encephalopathy with hyperammonemia. Encephalopathy resolving. -Continue lactulose -Trend ammonia level. 5. Alcoholic liver disease/hepatic steatosis/Liver cirrhosis. Of note, patient had TIPS in the past. -Avoid hepatotoxins. Monitor patient. -On diuretics and Aldactone. 6.Pancytopenia 2/2 to liver disease. Stable. No indication for transfusion at this time. 7.Hep C/Hep B -ID on board and will follow recommendation. Most likely patient need outpatient management for hep C. 8. Anemia of liver disease. -Continue folic acid supplementation. DVT prophylaxis: Ambulation/ICD PUD prophylaxis: Protonix Plan: Follow-up with EGD findings. Continue with PT evaluation Case discussed with Dr. Camilo. Problems: Subjective 24 Hr Interval Summary Free Text/Dictation Patient remains awake and oriented. Cooperative at this time. No acute overnight episodes. For EGD evaluation today. Exam/Review of Systems Vital Signs Vitals Vital Signs Date Time Temp Pulse Resp B/P Pulse Ox O2 Delivery O2 Flow Rate FiO2 10/19/16 05:36 60 99/47 10/19/16 02:58 98.1 18 97 10/17/16 14:25 Nasal Cannula 2.0 Intake and Output 10/18/16 10/18/16 10/19/16 15:00 23:00 07:00 Intake Total 440 ml 480 ml Output Total 2100 ml 1000 ml Balance -1660 ml -520 ml Exam General: Well developed,adequately built, not in any acute distress . HEENT: Normocephalic, Atraumatic, No laceration or hematoma; Eyes: PEERL, Conjunctiva clear, Anicteric sclera Neck: Supple without any lymphadenopathy, nontender, no JVD, no carotid bruits, trachea midline, no thyromegaly Cardiac: S1, S2 auscultated, regular rhythm and rate, no mumurs or gallop Pulmonary: Normal respiratory effort. Chest clear to auscultation bilaterally, no adventitious breath sounds GI: Abdomen normal to inspection. Soft, non tender, non- distended, no masses, no rebound tenderness or guarding. Bowel sounds active on all four quadrants Genitourinary: Deferred Extremities: No cyanosis, clubbing, or edema. Pulses [2+] bilaterally. Full ROM on all four extremities. No focal weakness appreciated. Neurologic: Anxious. Alert to person, place, time, and situation.intact sensation. Skin: Clean,dry, and intact. No ecchymosis, no rashes, or lesions Results Result Diagram: 10/19/1642110/19/16421 Results 24 hrs Laboratory Tests Test 10/19/16 04:22 White Blood Count 4.6 L Red Blood Count 3.90 L Hemoglobin 9.8 L Hematocrit 30.5 L Mean Corpuscular Volume 78.2 L Mean Corpuscular Hemoglobin 25.1 L Mean Corpuscular Hemoglobin Concent 32.1 Red Cell Distribution Width 18.9 H Platelet Count 75 L Mean Platelet Volume 10.1 Neutrophils % 38.1 L Lymphocytes % 41.7 Monocytes % 14.0 H Eosinophils % 5.4 Basophils % 0.6 Nucleated Red Blood Cells % 0.0 Neutrophils # 1.8 Lymphocytes # 1.9 Monocytes # 0.7 Eosinophils # 0.3 Basophils # 0.0 Nucleated Red Blood Cells # 0.0 Sodium Level 137 Potassium Level 3.5 Chloride Level 98 Carbon Dioxide Level 31 Anion Gap 12 Blood Urea Nitrogen 12 Creatinine 0.71 Glucose Level 76 Calcium Level 8.7 Ammonia 31 #H Medications Medications Current Medications Lorazepam (Ativan) 1 mg Q2H PRN IV ANXIETY Last administered on 10/14/16 08:58 ; Admin Dose 1 MG; Start 10/11/16 at 19:00 Docusate Sodium (Colace) 100 mg Q12H PRN PO CONSTIPATION Last administered on 17:49; Admin Dose 100 MG; Start 10/11/16 at 19:00 Ondansetron HCl (Zofran Inj) 4 mg Q6H PRN IV NAUSEA AND/OR VOMITING Last administered on 10/16/16 06:27; Admin Dose 4 MG; Start 10/12/16 at 10:30 Pantoprazole (Protonix Iv) 40 mg DAILY@06 IV Last administered on 10/19/16 05: 26; Admin Dose 40 MG; Start 10/17/16 at 14:00 Folic Acid (Folic Acid) 1 mg DAILY PO Last administered on 10/19/16 09:02; Admin Dose 1 MG; Start 10/17/16 at 14:00 Furosemide (Lasix) 20 mg DAILY@06 PO Last administered on 10/19/16 05:32; Admin Dose 20 MG; Start 10/17/16 at 14:00 Propranolol HCl (Inderal) 20 mg TID PO Last administered on 10/18/16 20:24; Admin Dose 20 MG; Start 10/17/16 at 21:00 Spironolactone (Aldactone) 25 mg BID@06,18 PO Last administered on 10/19/16 05 :31; Admin Dose 25 MG; Start 10/17/16 at 18:00 Thiamine HCl (Vitamin B1) 100 mg DAILY PO Last administered on 10/19/16 09:02 ; Admin Dose 100 MG; Start 10/17/16 at 14:00 Lactulose (Enulose) 15 gm Q6 PO Last administered on 10/19/16 05:27; Admin Dose 15 GM; Start 10/18/16 at 13:00 EDWARDO MITTAL NP Oct 19, 2016 10:22
--- NOTE | 2016-10-19 13:42 | QN ---
Documentation Comment Call received from RN stating that patient's sister Darlin wanted to talk to the provider. I tried to speak to her, however she did not want to talk to the nurse practitioner. She also mentioned that a nurse practitioner cannot evaluate and manage disease condition. I also told her that I am working with Dr. Camilo and I can give information on ultrasound abdominal which was performed. However, she again stated that nurse practitioners did not have those privileges and she will not talk to a nurse practitioner and she wanted to talk to an MD. Spoke to Dr. Camilo about this and she will follow the patient. EDWARDO MITTAL NP Oct 19, 2016 13:42
--- NOTE | 2016-10-19 16:23 | QN ---
Documentation Comment Pt's sister had told [employer] hospitalist that she wanted to speak to a physician not an [employer]. Around noon I came to speak with patient and sister. Sister states she was revoking consent for EGD bc pt "doesn't need it." Explained concern from GI that given anemia concern for GIB. Sister stated pt already had a tips which meant EV unlikely, also FOBT specimen was collected today and results are not yet back. Pt has never previously seen a GI/ID for his HepC/HepB. Post discharge f/u advised. Re pt's opiate addiction, pt and sister with multiple excuses. Pt was previously on methadone but it was "too expensive" and he "doesn't want to be dependent on something." Not interested in Suboxone for the same reason. Asked pt about NA meetings, sister stated those were "counter productive." Of note, pt and sister have not yet called any of the numbers provided on the resource list. PLAN wean O2 as tolerated PT eval dw pt and sister that if pt continues to use heroin, it will likely kill him. Pt and sister voiced understanding TOMASA LEMOS MD Oct 19, 2016 16:23
[2016-10-20 02:06] VITALS: BP 116/58; RESP 17
[2016-10-20 05:13] LABS: ABNORMAL IP MESSAGE 1; BASOPHILS % 0.4 % (0.0-2.0); EOSINOPHILS # 0.2 10^3/ul (0.0-0.5); EOSINOPHILS % 3.6 % (0.0-7.0); HEMATOCRIT 29.1 % (42.0-52.0); HEMOGLOBIN 9.5 g/dl (14.0-18.0); LYMPHOCYTES # 2.5 10^3/ul (0.8-2.9); LYMPHOCYTES % 44.5 % (15.0-51.0); MEAN CORPUSCULAR HEMOGLOBIN 25.2 pg (29.0-33.0); MEAN CORPUSCULAR HGB CONC 32.6 g/dl (32.0-37.0); MEAN CORPUSCULAR VOLUME 77.2 fl (82.0-101.0); MEAN PLATELET VOLUME 9.4 fl (7.4-10.4); MONOCYTE # 0.7 10^3/ul (0.3-0.9); NEUTROPHIL # 2.2 10^3/ul (1.6-7.5); NEUTROPHILS % 39.3 % (39.0-77.0); PLATELET COUNT 72 10^3/UL (140-415); POSITIVE DIFF @See below; RED BLOOD COUNT 3.77 10^6/ul (4.70-6.10); RED CELL DISTRIBUTION WIDTH 18.6 % (11.5-14.5); WHITE BLOOD COUNT 5.6 10^3/ul (4.8-10.8)
[2016-10-20] MEDS: SPIRONOLACTONE 25 MG TAB PO SCH (05:45)
[2016-10-20] MEDS: LACTULOSE 30ML CUP PO SCH ×3 (05:45→11:09)
[2016-10-20] MEDS: FUROSEMIDE 20 MG TAB PO SCH (05:46)
[2016-10-20 05:49] VITALS: BP 113/52; PULSE 63
[2016-10-20 08:00] VITALS: BP 102/54; RESP 20
[2016-10-20] MEDS: PROPRANOLOL 20 MG TAB PO SCH ×2 (08:59→12:41)
[2016-10-20] MEDS: THIAMINE 100 MG TAB PO SCH (09:00)
[2016-10-20] MEDS: FOLIC ACID 1 MG TAB PO SCH (09:00)
[2016-10-20 14:00] VITALS: BP 113/54; RESP 19
--- NOTE | 2016-10-20 14:16 | DS ---
Date/Time of Note Date/Time of Note DATE: 10/20/16 TIME: 14:02 Discharge Summary Admission/Discharge Info Admit Date/Time Oct 11, 2016 at 18:38 Discharge Date/Time Discharge Diagnosis 1. Acute toxic encephalopathy from heroine abuse, resolved 2. Anion gap Lactic acidosis, Resolved. 3. Mild rhabdomyolysis secondary to being down with #1. Resolved. 4. Hepatitis C, hepatitis B and Alcoholic liver disease/hepatic steatosis/Liver cirrhosis, with hyperammonemia. on lactulose, follow up with GI 5. Pancytopenia 2/2 to liver disease. Stable. follow up with PCP Patient Condition: Stable Hospital Course 56 yo M with heroin abuse brought in by ambulance after being found down at home by his mother. Unclear how long patient was down or the events that led up to this incident. On admission, patient was confused, Lactic acid 15, AG 34, Cr 1.47. CPK 1100. There was no indication of acute infection clinically. Patient was treated with IVF and supportive care, mental status, acidosis, and renal failure improved. Patient has chronic liver disease, from alcohol, hepatitis B and hepatitis C. Patient is on lactulose, aldactone, lasix and protonix for this. He will follow up with GI outpatient. Patient is anemeic with thrombocytopenia, H/H/MCV 9.5/29.1/77.2, PLT 72,000. These are considered chronic liver disease related. No bleeding. Home Meds Reported Medications Spironolactone* (Aldactone*) 25 Mg Tablet, 25 MG PO BID, #60 TAB 10/17/16 Thiamine* (Thiamine*) 100 Mg Tablet, 100 MG PO DAILY, TAB 10/17/16 Propranolol Hcl* (Propranolol Hcl*) 20 Mg Tablet, 20 MG PO TID, TAB 10/17/16 Pantoprazole* (Protonix*) 40 Mg Tablet.dr, 40 MG PO BID, TAB 10/17/16 Lactulose* (Lactulose*) 10 Gm/15 Ml Solution, 10 GM PO BID, ML 10/17/16 Furosemide* (Lasix*) 20 Mg Tablet, 20 MG PO DAILY, TAB 10/17/16 Folic Acid* (Folic Acid*) 1 Mg Tablet, 1 MG PO DAILY, TAB 10/17/16 Follow-up Plan PCP in one week GI in one week Primary Care Provider Care Physician No Primary Pending Labs Laboratory Tests Test 10/20/16 04:50 White Blood Count 5.610^3/ul (4.8-10.8) Red Blood Count 3.7710^6/ul (4.70-6.10) Hemoglobin 9.5g/dl (14.0-18.0) Hematocrit 29.1% (42.0-52.0) Mean Corpuscular Volume 77.2fl (82.0-101.0) Mean Corpuscular Hemoglobin 25.2pg (29.0-33.0) Mean Corpuscular Hemoglobin Concent 32.6g/dl (32.0-37.0) Red Cell Distribution Width 18.6% (11.5-14.5) Platelet Count 7210^3/UL (140-415) Mean Platelet Volume 9.4fl (7.4-10.4) Neutrophils % 39.3% (39.0-77.0) Lymphocytes % 44.5% (15.0-51.0) Monocytes % 12.0% (0.0-11.0) Eosinophils % 3.6% (0.0-7.0) Basophils % 0.4% (0.0-2.0) Nucleated Red Blood Cells % 0.0/100WBC (0.0-0.0) Neutrophils # 2.210^3/ul (1.6-7.5) Lymphocytes # 2.510^3/ul (0.8-2.9) Monocytes # 0.710^3/ul (0.3-0.9) Eosinophils # 0.210^3/ul (0.0-0.5) Basophils # 0.010^3/ul (0.0-0.1) Nucleated Red Blood Cells # 0.010^3/ul (0.0-0.0) RHONDA MONTALVO MD Oct 20, 2016 14:14
--- NOTE | 2016-10-20 16:05 | PN ---
Date/Time of Note Date/Time of Note DATE: 10/20/16 TIME: 16:00 Assessment/Plan VTE Prophylaxis VTE Prophylaxis Intervention: ambulation Lines/Catheters [facility] Central Line Central line still needed: No Urinary Cath still in place: No Assessment/Plan Assessment/Plan ssessment * Sepsis improving * Anemia 8.9 * Elevated ammonia * Hepatitis c infection * Elevated creatinine kinase * Hx of alcohol abuse * Hx of drug abuse Plan * stable for outpatient management * continue present management * case discussed with Dr Lawrence * Hepatis c can be managed as outpatient basis * further orders will depend clinical course Subjective 24 Hr Interval Summary Free Text/Dictation * course reviewed with RN * Patient seen and examined * Ultrasound Normal gallbladder without gallstones. Mild coarsening of the hepatic echotexture may represent early changes of steatosis or cirrhosis. No definite evidence of contour nodularity or focal hepatic lesions are seen. TIPS shunt is present however is incompletely evaluated. Exam/Review of Systems Vital Signs Vitals Vital Signs Date Time Temp Pulse Resp B/P Pulse Ox O2 Delivery O2 Flow Rate FiO2 10/20/16 14:00 97.7 69 19 113/54 100 10/20/16 05:49 Room Air 10/19/16 23:50 1.0 Intake and Output 10/19/16 10/19/16 10/20/16 15:00 23:00 07:00 Intake Total 540 ml 620 ml Output Total 7610 ml 175 ml Balance -7070 ml 445 ml Exam Constitutional: alert, oriented Neck: non-tender, supple Respiratory: clear to auscultation, normal air movement Cardiovascular: nl pulses, regular rate and rhythm Gastrointestinal: soft Musculoskeletal: nl extremities to inspection, nl gait and stance Extremities: normal pulses Neurological: nl speech, nl strength Skin: nl turgor, No rash or lesions Lymph: nl lymph nodes Results Result Diagram: 10/20/16 0450 10/19/16 0422 Results 24 hrs Laboratory Tests Test 10/20/16 04:50 White Blood Count 5.6 # Red Blood Count 3.77 L Hemoglobin 9.5 L Hematocrit 29.1 L Mean Corpuscular Volume 77.2 L Mean Corpuscular Hemoglobin 25.2 L Mean Corpuscular Hemoglobin Concent 32.6 Red Cell Distribution Width 18.6 H Platelet Count 72 L Mean Platelet Volume 9.4 Neutrophils % 39.3 Lymphocytes % 44.5 Monocytes % 12.0 H Eosinophils % 3.6 Basophils % 0.4 Nucleated Red Blood Cells % 0.0 Neutrophils # 2.2 Lymphocytes # 2.5 Monocytes # 0.7 Eosinophils # 0.2 Basophils # 0.0 Nucleated Red Blood Cells # 0.0 Medications Medications Current Medications Docusate Sodium (Colace) 100 mg Q12H PRN PO CONSTIPATION Last administered on 17:49; Admin Dose 100 MG; Start 10/11/16 at 19:00 Ondansetron HCl (Zofran Inj) 4 mg Q6H PRN IV NAUSEA AND/OR VOMITING Last administered on 10/16/16 06:27; Admin Dose 4 MG; Start 10/12/16 at 10:30 Folic Acid (Folic Acid) 1 mg DAILY PO Last administered on 10/20/16 09:00; Admin Dose 1 MG; Start 10/17/16 at 14:00 Furosemide (Lasix) 20 mg DAILY@06 PO Last administered on 10/20/16 05:46; Admin Dose 20 MG; Start 10/17/16 at 14:00 Propranolol HCl (Inderal) 20 mg TID PO Last administered on 10/20/16 12:41; Admin Dose 20 MG; Start 10/17/16 at 21:00 Spironolactone (Aldactone) 25 mg BID@06,18 PO Last administered on 10/20/16 05 :45; Admin Dose 25 MG; Start 10/17/16 at 18:00 Thiamine HCl (Vitamin B1) 100 mg DAILY PO Last administered on 10/20/16 09:00 ; Admin Dose 100 MG; Start 10/17/16 at 14:00 Lactulose (Enulose) 15 gm Q6 PO Last administered on 10/20/16 05:45; Admin Dose 15 GM; Start 10/18/16 at 13:00 BRIDGET LANIER NP Oct 20, 2016 16:05
== END 2016-10-20 17:30 | disposition home or self-care (01) | DRG 872 ==
LOC: E/R 15:34 → ICU 18:38 → MS4 10-12 14:40 → PP2 10-15 21:10
PROVIDERS: ADMIT Internal Medicine; ATTEND Internal Medicine
PROC: 4A033R1 Measurement of Arterial Saturation, Peripheral, Percutaneous Approach (ICD-10-PCS; principal; 2016-10-11)
PROC: 30233N1 Transfusion of Nonautologous Red Blood Cells into Peripheral Vein, Percutaneous Approach (ICD-10-PCS; 2016-10-13)
DX: A41.9 Sepsis, unspecified organism (principal); D61.818 Other pancytopenia; E87.2 Acidosis; E72.20 Disorder of urea cycle metabolism, unspecified; M62.82 Rhabdomyolysis; B18.1 Chronic viral hepatitis B without delta-agent; B18.2 Chronic viral hepatitis C; R94.4 Abnormal results of kidney function studies; F10.10 Alcohol abuse, uncomplicated; F17.210 Nicotine dependence, cigarettes, uncomplicated; K76.0 Fatty (change of) liver, not elsewhere classified; D63.8 Anemia in other chronic diseases classified elsewhere; K70.30 Alcoholic cirrhosis of liver without ascites; K71.10 Toxic liver disease with hepatic necrosis, without coma; F11.10 Opioid abuse, uncomplicated
CPT/HCPCS: 36430; 36600; 70450; 71010; 76700; 76937; 80048; 80053; 80076; 80306; 80307; 81001; 82010; 82140; 82150; 82270; 82550; 82803; 82962; 83605; 83690; 84484; 85014; 85018; 85025; 85610; 85730; 86703; 86704; 86706; 86709; 86803; 86850; 86900; 86901; 86920; 87040; 87081; 87086; 87340; 93005; 96374; 96375; 97110; 97116; 97530; C9113; J0692; J1650; J1956; J2060; J2310; J2405; J3370; J7030; J7070; P9016